=== PATIENT | female | born 1960 | race Caucasian/White ===

== ENCOUNTER → 2016-08-08 | Outpatient (CLI) | payer MEDICAID | END | disposition home or self-care (01) | LOC: LABWHC1 12:08 | PROVIDERS: ATTEND Internal Medicine | DX: E03.9 Hypothyroidism, unspecified (principal) | CPT/HCPCS: 36415; 84439; 84443; 84481 ==

== ENCOUNTER → 2016-09-27 | Outpatient (CLI) | payer MEDICAID ==
[2016-10-08 10:28] LABS: Mis test requested (Blood) IgE Antibody (IgG)
== END | disposition home or self-care (01) ==
LOC: LABWHC1 07:18
PROVIDERS: ATTEND Allergy & Immunology
DX: E06.3 Autoimmune thyroiditis (principal)
CPT/HCPCS: 36415; 83520; 84443; 86376; 86800

== ENCOUNTER → 2016-09-27 | Outpatient (CLI) | payer MEDICAID ==
--- NOTE | 2016-09-27 08:34 | US ---
EXAMINATION TYPE: US thyroid st tissue head/neck DATE OF EXAM: 09/27/2016 7:42 AM COMPARISON: NONE CLINICAL HISTORY: E06.3 HASHIMOTOS. GLAND SIZE: Right Lobe: 3.6 x 2.0 x 1.7 cm Overall Parenchyma: heterogenous Left Lobe: 3.3 x 1.3 x 1.4 cm Overall Parenchyma: heterogeneous Isthmus Thickness: 0.3 cm NODULES RIGHT: # of nodules measured on right: 0 LEFT: # of nodules measured on left: 0 ISTHMUS: # of nodules measured in the isthmus: 0 IMPRESSION: Bilateral neck scanned, no abnormal lymphadenopathy noted. Heterogeneous gland with inc reased vascularity, no distinct nodule visualized
== END | disposition home or self-care (01) ==
LOC: RADUSWWP 07:25
PROVIDERS: ATTEND Allergy & Immunology
DX: E06.3 Autoimmune thyroiditis (principal)
CPT/HCPCS: 36415; 76536; 84443; 86376; 86800

== ENCOUNTER → 2016-11-07 | Outpatient (CLI) | payer MEDICAID | END | disposition home or self-care (01) | LOC: LABWHC1 07:47 | PROVIDERS: ATTEND Allergy & Immunology | DX: E06.3 Autoimmune thyroiditis (principal) | CPT/HCPCS: 36415; 84436; 84439; 84443 ==

== ENCOUNTER → 2016-11-08 | Outpatient (CLI) | payer MEDICAID ==
--- NOTE | 2016-11-08 15:39 | XR ---
EXAMINATION TYPE: XR Hip LT and AP Pelvis DATE OF EXAM ORDERED: 11/08/2016 3:27 PM HISTORY: M25.552 L hip pain/Z96.642 Prescence of L artifica. COMPARISON: None. FINDINGS: There are bilateral hip prostheses in place. There is some heterotopic new bone on the lef t. There is a small amount of heterotopic topic bone on the right. No fracture or dislocation is seen . No obvious loosening of the prosthesis is seen. IMPRESSION: 1. NO ACUTE OSSEOUS LESION. 2. STATUS POST BILATERAL HIP PROSTHESES.
== END | disposition home or self-care (01) ==
LOC: RADXRMAIN 15:12
PROVIDERS: ATTEND Orthopaedic Surgery
DX: M25.552 Pain in left hip (principal); Z96.643 Presence of artificial hip joint, bilateral
CPT/HCPCS: 73502

== ENCOUNTER → 2016-11-14 | Outpatient (CLI) | payer MEDICAID ==
--- NOTE | 2016-11-14 13:56 | XR ---
Left knee HISTORY: Left knee pain 3 views of the left knee No comparisons Joint space loss and marginal spurring present especially in the medial compartment. Alignment and ellie ne mineralization are maintained. Some spurring present at the patellofemoral joint, lateral compartm ent. There may be a small joint effusion. IMPRESSION: Osteoarthritis.
== END ==
LOC: RADXRMAIN 08:35
PROVIDERS: ATTEND Orthopaedic Surgery
DX: M17.12 Unilateral primary osteoarthritis, left knee (principal); Z96.642 Presence of left artificial hip joint

== ENCOUNTER → 2016-12-20 | Outpatient (CLI) | payer MEDICAID ==
[2016-12-20 14:22] LABS: C Reactive Protein 40.4 mg/L (<10.0)
== END | disposition home or self-care (01) ==
LOC: LABWHC1 07:10
PROVIDERS: ATTEND Internal Medicine
DX: E03.9 Hypothyroidism, unspecified (principal)
CPT/HCPCS: 36415; 84439; 84443; 84481; 86140

== ENCOUNTER → 2016-12-31 | Outpatient (CLI) | payer MEDICAID | LOC: LABWHC1 14:13 | PROVIDERS: ATTEND Internal Medicine | DX: E03.9 Hypothyroidism, unspecified (principal) | CPT/HCPCS: 36415; 84436 ==

== ENCOUNTER → 2017-05-12 | Outpatient (CLI) | payer MEDICAID ==
--- NOTE | 2017-05-13 14:11 | MM ---
Reason for exam: screening (asymptomatic). Last mammogram was performed 1 year ago. History: Patient is postmenopausal. Family history of breast cancer in paternal aunt at age 60. Benign MG stereo VAD BX RT of the right breast, May 09, 2015. Took hormonal contraceptives for 9 years. Physical Findings: A clinical breast exam by your physician is recommended on an annual basis and results should be correlated with mammographic findings. MG 3D Screening Mammo W/Cad Bilateral CC and MLO view(s) were taken. Prior study comparison: May 10, 2016, bilateral MG 3d screening mammo w/cad. November 09, 2015, right breast MG diagnostic mammo RT w CAD. The breast tissue is heterogeneously dense. This may lower the sensitivity of mammography. Finding: There are typically benign calcifications in both breasts. Superficial lateral mass represents a skin mole. ASSESSMENT: Benign, BI-RAD 2 RECOMMENDATION: Routine screening mammogram of both breasts in 1 year.
== END ==
LOC: RADMAMWWP 15:25
PROVIDERS: ATTEND Obstetrics & Gynecology
DX: Z12.31 Encounter for screening mammogram for malignant neoplasm of breast (principal); Z80.3 Family history of malignant neoplasm of breast
CPT/HCPCS: 77063; G0202

== ENCOUNTER → 2017-05-13 | Outpatient (CLI) | payer MEDICAID ==
[2017-05-13 09:47] LABS: ALT 41 U/L (9-52); AST 26 U/L (14-36); Alkaline Phosphatase 112 U/L (38-126); Anion Gap 12 mmol/L; Blood Urea Nitrogen 17 mg/dL (7-17); Calcium 10.1 mg/dL (8.4-10.2); Carbon Dioxide 26 mmol/L (22-30); Chloride 101 mmol/L (98-107); Cholesterol 204 mg/dL (<200); Glucose 94 mg/dL (74-99); HDL Cholesterol 59 mg/dL (40-60); Non-African American GFR(MDRD) >60 (>60 ml/min/1.73 sqM); Potassium 5.5 mmol/L (3.5-5.1); Sodium 139 mmol/L (137-145); Total Bilirubin 0.3 mg/dL (0.2-1.3); Total Protein 7.1 g/dL (6.3-8.2)
[2017-05-13 10:02] LABS: CH 27.7; HCT 39.1 % (34.0-46.0); HDW 2.35; Hypochromasia Slight; MCH 27.5 pg (25.0-35.0); MCHC 30.6 g/dL (31.0-37.0); MCV 89.8 fL (80.0-100.0); Mean Platelet Volume 6.5; RBC 4.35 m/uL (3.80-5.40); RDW 12.9 % (11.5-15.5); WBC 7.7 k/uL (3.8-10.6)
== END | disposition home or self-care (01) ==
LOC: LABWHC1 08:41
PROVIDERS: ATTEND Internal Medicine
DX: Z00.00 Encounter for general adult medical examination without abnormal findings (principal); E78.5 Hyperlipidemia, unspecified; E03.9 Hypothyroidism, unspecified
CPT/HCPCS: 36415; 80053; 80061; 84439; 84443; 84481; 85027

== ENCOUNTER → 2017-08-13 | Outpatient (CLI) | payer MEDICAID ==
--- NOTE | 2017-08-13 11:41 | BD ---
EXAMINATION TYPE: MG DEXA axial skeleton. DATE OF EXAM: 08/13/2017 COMPARISON: NONE CLINICAL HISTORY: Osteoporosis screening . Postmenopausal female. Height: 5 FT 6 3/4 Weight: 188 FRAX RISK QUESTIONS: Alcohol (3 or more units per day): NO Family History (Parent hip fracture): NO Glucocorticoids (More than 3mos): NO (Ex: prednisone, prednisolone, methylprednisolone, dexamethasone, and hydrocortisone). History of Fracture in Adulthood: YES Secondary Osteoporosis: 1. Type 1 Diabetes: NO 2. Hyperthyroidism: NO 3. Menopause before 45: YES 4. Malnutrition: NO 5. Chronic liver disease: NO Rheumatoid Arthritis: NO Current Tobacco Use: NO RISK FACTORS HISTORY OF: Surgery to Spine/Hip(right/left)/Wrist (right/left): RADHA HIP REPLACED When: RT 2011 LT 2014 Active: YES Postmenopausal woman: AGE 41 Lost more than 2 inches in height since high school: YES MEDICATIONS: Thyroid Medications: YES Which medication: LEVOTHYROXINE How Lon YEARS Additional Medications: LEVOTHYROXINE,PREVACID Additional History: EXAM MEASUREMENTS: Bone mineral densitometry was performed using the [employer] System. Bone mineral density as measured about the Lumbar spine is: ----- L1-L4(G/cm2): 1.067 T Score Values are as follows: ----- L2: -2.0 ----- L3: -1.1 ----- L4: -0.2 ----- L1-L4: -0.9 Bone mineral density has: DECREASED -7.6 % since study of: 2011 IMPRESSION: Osteopenia (T Score between -2.5 and -1) as noted by T score values with regards to both hips. There is slightly increased risk of fracture and the patient may be considered for treatment. Re-Screen 2-5 years. NOTE: T-SCORE=SD OF THE YOUNG ADULT MEAN.
== END | disposition home or self-care (01) ==
LOC: RADBDWWP 09:00
PROVIDERS: ATTEND Obstetrics & Gynecology
DX: M85.852 Other specified disorders of bone density and structure, left thigh (principal); M85.851 Other specified disorders of bone density and structure, right thigh
CPT/HCPCS: 77080

== ENCOUNTER → 2017-08-15 | Outpatient (CLI) | payer MEDICAID ==
[2017-08-15 14:35] LABS: T4, Free (Free Thyroxine) 1.47 ng/dL (0.78-2.19)
== END | disposition home or self-care (01) ==
LOC: LABWHC1 13:47
PROVIDERS: ATTEND Internal Medicine
DX: E03.9 Hypothyroidism, unspecified (principal)
CPT/HCPCS: 36415; 84439; 84443; 84481

== ENCOUNTER → 2018-05-14 | Outpatient (CLI) | payer MEDICAID ==
--- NOTE | 2018-05-15 12:02 | MM ---
Reason for exam: screening (asymptomatic). Last mammogram was performed 1 year ago. History: Patient is postmenopausal. Family history of breast cancer in paternal aunt at age 60. Benign MG stereo VAD BX RT of the right breast, May 09, 2015. Took hormonal contraceptives for 9 years. Physical Findings: A clinical breast exam by your physician is recommended on an annual basis and results should be correlated with mammographic findings. MG 3D Screening Mammo W/Cad Bilateral CC and MLO view(s) were taken. XCCL view(s) were taken of the right breast. Prior study comparison: May 12, 2017, bilateral MG 3d screening mammo w/cad. May 10, 2016, bilateral MG 3d screening mammo w/cad. The breast tissue is heterogeneously dense. This may lower the sensitivity of mammography. There is no discrete abnormality. No significant changes when compared with prior studies. ASSESSMENT: Benign, BI-RAD 2 RECOMMENDATION: Routine screening mammogram of both breasts in 1 year.
== END | disposition home or self-care (01) ==
LOC: RADMAMWWP 12:24
PROVIDERS: ATTEND Obstetrics & Gynecology
DX: Z12.31 Encounter for screening mammogram for malignant neoplasm of breast (principal)
CPT/HCPCS: 77063; 77067

== ENCOUNTER → 2018-07-20 | Outpatient (CLI) | payer MEDICAID ==
[2018-07-20 15:38] LABS: Vitamin D 25 Hydroxy 31.8 ng/mL (30.0-100.0)
[2018-07-20 16:05] LABS: Thyroid Peroxidase Antibodies 2805.6 U/mL (0.0-60.0)
== END ==
LOC: LABWHC1 11:30
PROVIDERS: ATTEND Obstetrics & Gynecology
DX: N95.1 Menopausal and female climacteric states (principal); G47.00 Insomnia, unspecified; R53.83 Other fatigue; R61 Generalized hyperhidrosis
CPT/HCPCS: 36415; 82306; 82607; 82670; 83001; 84403; 84436; 84443; 84481; 86376

== ENCOUNTER → 2018-10-02 | Outpatient (CLI) | payer MEDICAID | END | disposition home or self-care (01) | LOC: LABWHC1 07:24 | PROVIDERS: ATTEND Obstetrics & Gynecology | DX: N95.1 Menopausal and female climacteric states (principal); R61 Generalized hyperhidrosis; R53.83 Other fatigue | CPT/HCPCS: 36415; 82670; 83001; 84403 ==

== ENCOUNTER → 2019-05-05 | Outpatient (CLI) | payer MEDICAID ==
[2019-05-05 07:40] LABS: Basophils % (A) 1 %; Eosinophils # (A) 0.3 k/uL (0-0.7); Eosinophils % (A) 4 %; HCT 39.8 % (34.0-46.0); HGB 12.5 gm/dL (11.4-16.0); Lymphocytes # (A) 1.2 k/uL (1.0-4.8); Lymphocytes % (A) 20 %; MCH 30.4 pg (25.0-35.0); MCHC 31.4 g/dL (31.0-37.0); MCV 96.8 fL (80.0-100.0); Mean Platelet Volume 6.9; Monocytes # (A) 0.4 k/uL (0-1.0); Monocytes % (A) 6 %; Neutrophils # (A) 4.1 k/uL (1.3-7.7); Neutrophils % (A) 68 %; Platelet Count 329 k/uL (150-450); RBC 4.11 m/uL (3.80-5.40); RDW 13.2 % (11.5-15.5)
[2019-05-05 11:41] LABS: African American GFR (CKD) 109.1 (60.0-200.0); Albumin 4.3 g/dL (3.80-4.90); Albumin/Globulin Ratio 2.39 (1.60-3.17); BUN/Creat Ratio 12.86 Ratio (12.00-20.00); Calcium 9.8 mg/dL (8.7-10.3); Chol/HDL Ratio 3.16; Globulin 1.8 g/dL (1.6-3.3); LDL Cholesterol,Calculated 119.2 mg/dL (0.0-131.0); Potassium 4.1 mmol/L (3.5-5.5); Total Bilirubin 0.7 mg/dL (0.2-1.2); Total Protein 6.1 g/dL (6.2-8.2); VLDL Calculation 14.8 mg/dL (5.00-40.00)
[2019-05-05 11:48] LABS: T4, Free (Free Thyroxine) 1.4 ng/dL (0.80-1.80)
[2019-05-05 14:30] LABS: Hemoglobin A1C 4.6 % (4.0-6.0)
== END | disposition home or self-care (01) ==
LOC: LABWHC1 06:53
PROVIDERS: ATTEND Internal Medicine
DX: E78.2 Mixed hyperlipidemia (principal); K21.0 Gastro-esophageal reflux disease with esophagitis; E03.9 Hypothyroidism, unspecified
CPT/HCPCS: 36415; 80053; 80061; 83036; 84439; 84443; 85025

== ENCOUNTER → 2019-05-19 | Outpatient (CLI) | payer MEDICAID ==
--- NOTE | 2019-05-20 09:14 | MM ---
Reason for exam: screening (asymptomatic). Last mammogram was performed 1 year ago. History: Patient is postmenopausal. Family history of breast cancer in paternal aunt at age 60. Benign MG stereo VAD BX RT of the right breast, May 09, 2015. Took hormonal contraceptives for 9 years. Taking progesterone for 1 year. Taking other hormone for 1 year. Physical Findings: A clinical breast exam by your physician is recommended on an annual basis and results should be correlated with mammographic findings. MG 3D Screening Mammo W/Cad Bilateral CC and MLO view(s) were taken. Prior study comparison: May 14, 2018, bilateral MG 3d screening mammo w/cad. May 12, 2017, bilateral MG 3d screening mammo w/cad. The breast tissue is heterogeneously dense. This may lower the sensitivity of mammography. Focal asymmetry upper outer left breast. This finding is changed when compared with previous exams. ASSESSMENT: Incomplete: need additional imaging evaluation, BI-RAD 0 RECOMMENDATION: Special view mammogram of the left breast. If lesion persists on supplemental views, image directed ultrasound is recommended. [facility] will attempt to contact patient to return for supplemental views and ultrasound if indicated.
== END | disposition home or self-care (01) ==
LOC: RADMAMWWP 07:44
PROVIDERS: ATTEND Obstetrics & Gynecology
DX: Z12.31 Encounter for screening mammogram for malignant neoplasm of breast (principal)
CPT/HCPCS: 77063; 77067

== ENCOUNTER → 2019-05-20 | Outpatient (CLI) | payer MEDICAID ==
--- NOTE | 2019-05-20 11:20 | MM ---
Reason for exam: additional evaluation requested from abnormal screening. Last mammogram was performed less than 1 month ago. History: Patient is postmenopausal. Family history of breast cancer in paternal aunt at age 60. Benign MG stereo VAD BX RT of the right breast, May 09, 2015. Took hormonal contraceptives for 9 years. Taking estrogen. Taking progesterone for 1 year. Taking other hormone for 1 year. Physical Findings: Nurse did not find any significant physical abnormalities on exam. MG 3D Work Up W/Cad LT Spot compression CC, spot compression MLO, and ML view(s) were taken of the left breast. Prior study comparison: May 19, 2019, bilateral MG 3d screening mammo w/cad. May 14, 2018, bilateral MG 3d screening mammo w/cad. Nodularity persists upper outer quadrant left breast. Ultrasound recommended. These results were verbally communicated with the patient and result sheet given to the patient on 05/20/19. ASSESSMENT: Incomplete: need additional imaging evaluation, BI-RAD 0 RECOMMENDATION: Ultrasound of the left breast.
--- NOTE | 2019-05-20 11:21 | USB ---
Reason for exam: additional evaluation requested from abnormal screening. History: Patient is postmenopausal. Family history of breast cancer in paternal aunt at age 60. Benign MG stereo VAD BX RT of the right breast, May 09, 2015. Took hormonal contraceptives for 9 years. Taking estrogen. Taking progesterone for 1 year. Taking other hormone for 1 year. US Breast Workup Limited LT Left limited breast ultrasound including focal area of concern, retroareolar and axilla demonstrates a 0.7 x 0.4 x 0.5cm oval, cystic lesion at 3 o'clock. These results were verbally communicated with the patient and result sheet given to the patient on 05/20/19. ASSESSMENT: Benign, BI-RAD 2 RECOMMENDATION: Return to routine screening mammogram schedule for both breasts.
== END | disposition home or self-care (01) ==
LOC: RADMAMWWP 10:14
PROVIDERS: ATTEND Obstetrics & Gynecology
DX: R92.8 Other abnormal and inconclusive findings on diagnostic imaging of breast (principal)
CPT/HCPCS: 77061; 77065

== ENCOUNTER 2019-05-28 08:03 | Day surgery (SDC) | payer MEDICAID ==
[2019-05-26 15:46] VITALS: BMI 26.6
[~2019-05-28 08:03] MED LIST: LACTATED RINGERS 1,000 ML IV SCH
[2019-05-28 08:32] VITALS: RESP 18; TEMP 98.9
[2019-05-28] MEDS ORDERED: LIDOCAINE 1% 20 ML VIAL (10MG/ML) FOR IV START INTRADERMA ONE (08:33)
[2019-05-28] MEDS ORDERED: PROPOFOL 10 MG/ML 20 ML VIAL IV ONE (09:06)
[2019-05-28] MEDS ORDERED: fentaNYL (PF) 50 MCG/ML 2 ML AMP ONE (09:06)
[2019-05-28] MEDS ORDERED: MIDAZOLAM 2 MG/2 ML VIAL ONE (09:06)
--- NOTE | 2019-05-28 09:27 | P.PCN ---
Date of Procedure: 05/28/19 Procedure(s) Performed: BRIEF HISTORY: Patient is a 58-year-old pleasant white female scheduled for an elective colonoscopy as a part of screening for colorectal neoplasia. PROCEDURE PERFORMED: Colonoscopy. PREOPERATIVE DIAGNOSIS: Screening for colon cancer. IV sedation per Anesthesia. PROCEDURE: After informed consent was obtained, the patient, was brought into the endoscopy unit. IV sedation was administered by Anesthesia under continuous monitoring. Digital rectal examination was normal. Initially the Olympus CF-160 flexible video colonoscope was then inserted in the rectum, gradually advanced into the cecum without any difficulty. Careful examination was performed as the scope was gradually being withdrawn. Ileocecal valve and the appendiceal orifice were visualized and appeared normal. Prep was excellent. Mucosa of the cecum, ascending colon, transverse colon, descending colon, sigmoid colon, and rectum appeared normal. Retroflexion was performed in the rectum and no lesions were seen. The patient tolerated the procedure well. IMPRESSION: Normal-appearing colon from rectum to cecum with no evidence of colorectal neoplasia . RECOMMENDATIONS: Findings of this examination were discussed with the patient as well as her family. She was advised to have a repeat screening colonoscopy in 10 years.
[2019-05-28 09:49] VITALS: BP 135/76; PULSE 60
== END 2019-05-28 10:05 | disposition home or self-care (01) ==
LOC: ORWHC2ENDO 08:03
PROVIDERS: ATTEND Internal Medicine Gastroenterology
DX: Z12.11 Encounter for screening for malignant neoplasm of colon (principal); Z87.891 Personal history of nicotine dependence; E07.9 Disorder of thyroid, unspecified; K21.9 Gastro-esophageal reflux disease without esophagitis; Z79.890 Hormone replacement therapy; Z88.5 Allergy status to narcotic agent; Z79.899 Other long term (current) drug therapy
CPT/HCPCS: J2250; J3010; J2704; G0121

== ENCOUNTER → 2019-07-02 | Outpatient (CLI) | payer MEDICAID ==
[2019-07-02 17:13] LABS: T4, Free (Free Thyroxine) 1.2 ng/dL (0.80-1.80)
== END | disposition home or self-care (01) ==
LOC: LABWHC1 11:02
PROVIDERS: ATTEND Internal Medicine
DX: E03.9 Hypothyroidism, unspecified (principal)
CPT/HCPCS: 36415; 84439; 84443

== ENCOUNTER → 2019-08-24 | Outpatient (CLI) | payer MEDICAID ==
--- NOTE | 2019-08-24 14:03 | BD ---
EXAMINATION TYPE: Axial Bone Density DATE OF EXAM: 08/24/2019 COMPARISON: 2018 CLINICAL HISTORY: M 89.9 Height: 66 & 3/4 inches Weight: 165 FRAX RISK QUESTIONS: Alcohol (3 or more units per day): no Family History (Parent hip fracture): no Glucocorticoids (More than 3mos): no (Ex: prednisone, prednisolone, methylprednisolone, dexamethasone, and hydrocortisone). History of Fracture in Adulthood: yes Secondary Osteoporosis: 1. Type 1 Diabetes: no 2. Hyperthyroidism: no 3. Menopause before 45: unsure 4. Malnutrition: no 5. Chronic liver disease: no Rheumatoid Arthritis: no Current Tobacco Use: no RISK FACTORS HISTORY Surgery to Hip right/left): yes, bilateral hip replacement When: Right 2011, Left 2014 Family History of Osteoporosis: no Active: yes Diet low in dairy products/other sources of calcium: no Postmenopausal woman: yes Take estrogen and/or progesterone medications: yes How long: progesterone pellets since 2017; hormonal contraceptives about 9 years but not now Lost more than 2 inches in height since high school: unsure; states was 5ft - 8 & 3/4 inches at one t zackary but has had bilateral hip replacements Frequent falls: no Poor Health: no Hyperparathyroidism: no Adrenal Insufficiency: no MEDICATIONS: Prednisone or other steroids: no Thyroid Medications: yes Which medication: Levothyroxine How Long: over 15 years Osteoporosis Medications: no Additional Medications: generic Prevacid Additional History: Hashimotos EXAM MEASUREMENTS: Bone mineral densitometry was performed using the [employer] System. Bone mineral density as measured about the Lumbar spine is: ----- L1-L4(G/cm2): 1.072 T Score Values are as follows: ----- L2: -1.9 ----- L3: -1.2 ----- L4: 0.3 ----- L1-L4: -0.9 Bone mineral density has: Increased 2.1% since study of: 08/13/2017 Bone mineral density about the L Wrist (g/cm2): 0.588 T Score values are as follows: -----Dist. R+U: -1.6 -----Prox. R+U: -1.5 -----Radius total: -1.4 Bone mineral density BASELINE for forearm IMPRESSION: Osteopenia (T Score between -2.5 and 1). There is slightly increased risk of fracture and patient may be considered for treatment. Re-Screen 2-5 years. NOTE: T-SCORE=SD OF THE YOUNG ADULT MEAN.
== END | disposition home or self-care (01) ==
LOC: RADBDWWP 07:39
PROVIDERS: ATTEND Obstetrics & Gynecology
DX: M85.80 Other specified disorders of bone density and structure, unspecified site (principal)
CPT/HCPCS: 77080

== ENCOUNTER → 2019-09-16 | Outpatient (CLI) | payer MEDICAID ==
[2019-09-16 11:45] LABS: Estradiol 71.5 pg/mL
== END | disposition home or self-care (01) ==
LOC: LABWHC1 07:40
PROVIDERS: ATTEND Obstetrics & Gynecology
DX: R53.83 Other fatigue (principal); E34.50 Androgen insensitivity syndrome, unspecified; N95.1 Menopausal and female climacteric states; R37 Sexual dysfunction, unspecified
CPT/HCPCS: 36415; 82670; 83001; 84144; 84403

== ENCOUNTER → 2020-03-08 | Outpatient (CLI) | payer MEDICAID ==
--- NOTE | 2020-03-08 09:26 | XR ---
EXAMINATION TYPE: XR knee complete LT DATE OF EXAM: 03/08/2020 CLINICAL HISTORY: Pain in left knee. Swelling. TECHNIQUE: AP, oblique, lateral and sunrise views of the left knee are obtained. COMPARISON: 11/14/2016 left knee radiograph FINDINGS: There is no acute fracture/dislocation evident in left knee. Tricompartmental degenerative spurring. There is normal alignment of the patella and sunrise view without evidence of significant subluxation. Small suprapatellar joint effusion. Normal osseous mineralization. IMPRESSION: 1. No acute fracture or dislocation of the knee. 2. Tricompartmental osteoarthritic changes mildly increased versus 2017 comparison. 3. Small suprapatellar joint effusion.
== END | disposition home or self-care (01) ==
LOC: RADXRMAIN 07:32
PROVIDERS: ATTEND Orthopaedic Surgery Sports Medicine
DX: M25.462 Effusion, left knee (principal)

== ENCOUNTER → 2020-05-29 | Outpatient (CLI) | payer MEDICAID ==
--- NOTE | 2020-05-31 10:54 | MM ---
Reason for exam: screening (asymptomatic). Last mammogram was performed 1 year ago. History: Patient is postmenopausal. Family history of breast cancer in paternal aunt at age 60. Benign MG stereo VAD BX RT of the right breast, May 09, 2015. Took hormonal contraceptives for 9 years. Taking estrogen. Taking progesterone for 1 year. Taking other hormone for 1 year. Physical Findings: A clinical breast exam by your physician is recommended on an annual basis and results should be correlated with mammographic findings. MG 3D Screening Mammo W/Cad Bilateral CC and MLO view(s) were taken. Prior study comparison: May 20, 2019, left breast MG 3d work up w/cad LT. May 19, 2019, bilateral MG 3d screening mammo w/cad. The breast tissue is heterogeneously dense. This may lower the sensitivity of mammography. Bilateral calcifications. No significant changes when compared with prior studies. ASSESSMENT: Benign, BI-RAD 2 RECOMMENDATION: Routine screening mammogram of both breasts in 1 year.
== END | disposition home or self-care (01) ==
LOC: RADMAMWWP 07:33
PROVIDERS: ATTEND Obstetrics & Gynecology
DX: Z12.31 Encounter for screening mammogram for malignant neoplasm of breast (principal)
CPT/HCPCS: 77063; 77067

== ENCOUNTER → 2020-07-07 | Outpatient (CLI) | payer MEDICAID | END | disposition home or self-care (01) | LOC: LABWHC1 13:05 | PROVIDERS: ATTEND Internal Medicine | DX: Z00.00 Encounter for general adult medical examination without abnormal findings (principal) | CPT/HCPCS: 36415; 84443 ==

== ENCOUNTER → 2020-07-31 | Outpatient (CLI) | payer MEDICAID ==
[2020-07-31 07:40] LABS: Basophils # (A) 0.1 k/uL (0-0.2); Basophils % (A) 1 %; Eosinophils # (A) 0.3 k/uL (0-0.7); Eosinophils % (A) 4 %; HCT 39.6 % (34.0-46.0); HGB 13.1 gm/dL (11.4-16.0); Lymphocytes # (A) 1.7 k/uL (1.0-4.8); Lymphocytes % (A) 27 %; MCH 30.6 pg (25.0-35.0); MCHC 33.2 g/dL (31.0-37.0); MCV 92.2 fL (80.0-100.0); Mean Platelet Volume 6.6; Monocytes # (A) 0.4 k/uL (0-1.0); Monocytes % (A) 6 %; Neutrophils # (A) 3.9 k/uL (1.3-7.7); Neutrophils % (A) 61 %; Platelet Count 354 k/uL (150-450); RBC 4.29 m/uL (3.80-5.40); RDW 12.6 % (11.5-15.5); WBC 6.4 k/uL (3.8-10.6)
[2020-07-31 10:28] LABS: African American GFR (CKD) 113.2 (60.0-200.0); Albumin 4.2 g/dL (3.80-4.90); Albumin/Globulin Ratio 2.1 (1.60-3.17); Anion Gap 3.9 mmol/L (4.00-12.00); BUN/Creat Ratio 21.67 Ratio (12.00-20.00); Calcium 9.5 mg/dL (8.7-10.3); Carbon Dioxide 29.1 mmol/L (21.6-31.8); Chol/HDL Ratio 3.49; LDL Cholesterol,Calculated 155.2 mg/dL (0.0-131.0); Non-African American GFR(CKD) 97.7 (60.0-200.0); Potassium 4.9 mmol/L (3.5-5.5); Total Bilirubin 0.5 mg/dL (0.2-1.2); Total Protein 6.2 g/dL (6.2-8.2); VLDL Calculation 13.8 mg/dL (5.00-40.00)
== END | disposition home or self-care (01) ==
LOC: LABWHC1 06:53
PROVIDERS: ATTEND Internal Medicine
DX: Z00.00 Encounter for general adult medical examination without abnormal findings (principal)
CPT/HCPCS: 36415; 80053; 80061; 85025

== ENCOUNTER → 2020-08-23 | Outpatient (CLI) | payer MEDICAID ==
[2020-08-23 11:26] LABS: Estradiol 52.7 pg/mL; Follicle Stimulating Hormone 58.4 mIU/mL
== END | disposition home or self-care (01) ==
LOC: LABWHC1 06:53
PROVIDERS: ATTEND Obstetrics & Gynecology
DX: N95.1 Menopausal and female climacteric states (principal); E34.50 Androgen insensitivity syndrome, unspecified; R53.83 Other fatigue
CPT/HCPCS: 36415; 82670; 83001; 84144

== ENCOUNTER → 2020-11-03 | Outpatient (CLI) | payer MEDICAID ==
[2020-11-03 16:52] LABS: African American GFR (CKD) 107.6 (60.0-200.0); Albumin 4.4 g/dL (3.80-4.90); Anion Gap 8.1 mmol/L (4.00-12.00); BUN/Creat Ratio 18.57 Ratio (12.00-20.00); Calcium 10.2 mg/dL (8.7-10.3); Carbon Dioxide 25.9 mmol/L (21.6-31.8); Chol/HDL Ratio 2.61; Globulin 2.2 g/dL (1.6-3.3); LDL Cholesterol,Calculated 81.6 mg/dL (0.0-131.0); Non-African American GFR(CKD) 92.9 (60.0-200.0); Potassium 5.2 mmol/L (3.5-5.5); Total Bilirubin 0.6 mg/dL (0.2-1.2); Total Protein 6.6 g/dL (6.2-8.2); VLDL Calculation 13.4 mg/dL (5.00-40.00)
[2020-11-03 16:59] LABS: T4, Free (Free Thyroxine) 1.4 ng/dL (0.80-1.80)
== END | disposition home or self-care (01) ==
LOC: LABWHC1 06:56
PROVIDERS: ATTEND Internal Medicine
DX: E78.2 Mixed hyperlipidemia (principal); E03.9 Hypothyroidism, unspecified
CPT/HCPCS: 36415; 80053; 80061; 84439; 84443

== ENCOUNTER → 2020-12-13 | Day surgery (SDC) | payer MEDICAID ==
[2020-12-06 14:39] VITALS: BMI 25.0
[~2020-12-13] MED LIST changes: +LIDOCAINE 1% INJ 10MG/ML (20 ML MDV) ONE; +PROPOFOL 10 MG/ML 20 ML VIAL IV ONE
[2020-12-13 09:18] VITALS: RESP 16; TEMP 97.4
--- NOTE | 2020-12-13 10:00 | P.PCN ---
Date of Procedure: 12/13/20 Procedure(s) Performed: BRIEF HISTORY: Patient is a 60-year-old, pleasant, white female scheduled for an upper endoscopy as a part of evaluation of long-standing history of GERD and has been on Prevacid 30 mg daily. Lately has been having intermittent dysphagia to solids and pills.. PROCEDURE PERFORMED: Esophagogastroduodenoscopy with dilation PREOPERATIVE DIAGNOSIS: GERD/intermittent dysphagia to solids. IV sedation per anesthesia. PROCEDURE: After informed consent was obtained, the patient was brought into the endoscopy unit. IV sedation was administered by Anesthesia under continuous monitoring. Initially the Olympus GIF-140 video endoscope was inserted into the mouth. Esophagus intubated without any difficulty. It was gradually advanced into the stomach and duodenum and carefully examined. The bulb and the second part of the duodenum appeared normal. The scope at this time was withdrawn to the stomach, adequately insufflated with air, and upon careful examination, mucosa of the antrum, body, cardia and the fundus appeared normal. The scope was then withdrawn into the esophagus. Small sliding type hiatal hernia noted. The GE junction was located at 39 cm from the incisors. There was a distal esophageal Schatzki's ring noted which was patent and was dilated using 15-18 mm TTS balloon in a sequential fashion for 90 seconds. The rest of the esophagus appeared normal. There were no erosions or ulcerations seen and the patient tolerated the procedure well. IMPRESSION: 1. Dstal esophageal Schatzki's ring status post balloon dilation using 15-18 mm TTS balloon as described. 2. Small hiatal hernia. RECOMMENDATIONS: The findings of this examination were discussed with the patient is a family.. She was advised to be on a clear liquid diet for lunch. Continue with Prevacid 30 mg daily and follow antireflux measures.
[2020-12-13 10:22] VITALS: BP 119/74; PULSE 53
== END ==
LOC: ORWHC2ENDO 08:40
PROVIDERS: ATTEND Internal Medicine Gastroenterology
DX: K22.2 Esophageal obstruction (principal); E07.9 Disorder of thyroid, unspecified; K21.9 Gastro-esophageal reflux disease without esophagitis; Z79.899 Other long term (current) drug therapy
CPT/HCPCS: 43249; J2001; J2704; C1726

== ENCOUNTER → 2021-02-01 | Outpatient (CLI) | payer MEDICAID | END | disposition home or self-care (01) | DX: N95.0 Postmenopausal bleeding (principal) ==

== ENCOUNTER → 2021-04-17 | Outpatient (CLI) | payer MEDICAID ==
[2021-04-17 11:50] LABS: Basophils # (A) 0.08 X 10*3/uL (0.00-0.10); Basophils % (A) 1.1 %; Eosinophils # (A) 0.19 X 10*3/uL (0.04-0.35); Eosinophils % (A) 2.7 %; HCT 40.6 % (37.2-46.3); Lymphocytes # (A) 1.96 X 10*3/uL (0.90-5.00); MCH 29.6 pg (27.0-32.0); MCV 92.5 fL (80.0-97.0); Mean Platelet Volume 9.9 fL (9.5-12.2); Monocytes # (A) 0.47 X 10*3/uL (0.20-1.00); Monocytes % (A) 6.7 %; Neutrophils # (A) 4.29 X 10*3/uL (1.80-7.70); Neutrophils % (A) 61.2 %; Platelet Count 368 X 10*3/uL (140-440); RBC 4.39 X 10*6/uL (4.10-5.20); RDW 11.9 % (11.5-14.5); WBC 7.01 X 10*3/uL (4.50-10.00)
[2021-04-17 18:11] LABS: African American GFR (CKD) 107.6 (60.0-200.0); Albumin 4.4 g/dL (3.80-4.90); Anion Gap 9.3 mmol/L (4.00-12.00); BUN/Creat Ratio 28.57 Ratio (12.00-20.00); Calcium 9.8 mg/dL (8.7-10.3); Carbon Dioxide 23.7 mmol/L (21.6-31.8); Chol/HDL Ratio 2.53; Globulin 2.2 g/dL (1.6-3.3); Non-African American GFR(CKD) 92.9 (60.0-200.0); Potassium 4.9 mmol/L (3.5-5.5); Total Bilirubin 0.6 mg/dL (0.2-1.2); Total Protein 6.6 g/dL (6.2-8.2)
[2021-04-17 18:20] LABS: T4, Free (Free Thyroxine) 1.4 ng/dL (0.80-1.80)
== END | disposition home or self-care (01) ==
LOC: LABWHC1 06:48
PROVIDERS: ATTEND Internal Medicine
DX: E03.9 Hypothyroidism, unspecified (principal); E78.2 Mixed hyperlipidemia; K21.00 Gastro-esophageal reflux disease with esophagitis, without bleeding
CPT/HCPCS: 36415; 80053; 80061; 84439; 84443; 85025

== ENCOUNTER → 2021-05-30 | Outpatient (CLI) | payer MEDICAID | END | disposition home or self-care (01) | LOC: LABWHC1 15:41 | PROVIDERS: ATTEND Emergency Medicine | DX: U07.1 COVID-19 (principal) | CPT/HCPCS: 87635 ==

== ENCOUNTER → 2021-07-06 | Outpatient (CLI) | payer MEDICAID ==
--- NOTE | 2021-07-09 15:02 | MM ---
Reason for exam: screening (asymptomatic). Last mammogram was performed 1 year and 1 month ago. History: Patient is postmenopausal. Family history of breast cancer in paternal aunt at age 60. Benign MG stereo VAD BX RT of the right breast, May 09, 2015. Took hormonal contraceptives for 9 years. Taking estrogen. Taking progesterone for 1 year. Taking other hormone for 1 year. Physical Findings: A clinical breast exam by your physician is recommended on an annual basis and results should be correlated with mammographic findings. MG 3D Screening Mammo W/Cad Bilateral CC and MLO view(s) were taken. Prior study comparison: May 29, 2020, bilateral MG 3d screening mammo w/cad. May 20, 2019, left breast MG 3d work up w/cad LT. May 19, 2019, bilateral MG 3d screening mammo w/cad. May 14, 2018, bilateral MG 3d screening mammo w/cad. The breast tissue is heterogeneously dense. This may lower the sensitivity of mammography. Finding: There are stable heterogeneous, grouped/clustered calcifications in the middle position of the left breast. Closer evaluation recommended. New finding since May 29, 2020, May 20, 2019, May 19, 2019, and May 14, 2018. ASSESSMENT: Incomplete: need additional imaging evaluation, BI-RAD 0 RECOMMENDATION: Special view mammogram of the left breast. [facility] will attempt to contact patient to return for supplemental views.
== END | disposition home or self-care (01) ==
LOC: RADMAMWWP 06:52
PROVIDERS: ATTEND Obstetrics & Gynecology
DX: Z12.31 Encounter for screening mammogram for malignant neoplasm of breast (principal); Z80.3 Family history of malignant neoplasm of breast; Z78.0 Asymptomatic menopausal state
CPT/HCPCS: 77063; 77067

== ENCOUNTER → 2021-07-18 | Outpatient (CLI) | payer MEDICAID ==
--- NOTE | 2021-07-18 10:15 | MM ---
Reason for exam: additional evaluation requested from abnormal screening. Last mammogram was performed less than 1 month ago. History: Patient is postmenopausal. Family history of breast cancer in paternal aunt at age 60. Benign MG stereo VAD BX RT of the right breast, May 09, 2015. Took hormonal contraceptives for 9 years. Taking estrogen for 3 years. Taking progesterone for 3 years. Taking other hormone for 3 years. Physical Findings: Nurse did not find any significant physical abnormalities on exam. MG 3D Work Up W/Cad LT CC with magnification, LM with magnification, and ML view(s) were taken of the left breast. Prior study comparison: July 06, 2021, bilateral MG 3d screening mammo w/cad. May 29, 2020, bilateral MG 3d screening mammo w/cad. The breast tissue is heterogeneously dense. This may lower the sensitivity of mammography. Central 12 o'clock grouped calcifications appear more numerous but appear to be compromised of both milk of calcium and round and puctate calcifications. 6 month follow up recommended given increase. These results were verbally communicated with the patient and result sheet given to the patient on 07/18/21. ASSESSMENT: Probably benign, BI-RAD 3 RECOMMENDATION: Follow-up diagnostic mammogram of the left breast in 6 months.
== END | disposition home or self-care (01) ==
LOC: RADMAMWWP 06:57
PROVIDERS: ATTEND Obstetrics & Gynecology
DX: R92.1 Mammographic calcification found on diagnostic imaging of breast (principal); Z80.3 Family history of malignant neoplasm of breast; Z78.0 Asymptomatic menopausal state
CPT/HCPCS: 77061; 77065

== ENCOUNTER → 2021-11-27 | Outpatient (CLI) | payer MEDICAID ==
--- NOTE | 2021-11-27 15:40 | CT ---
EXAMINATION TYPE: CT heart w calcium score DATE OF EXAM: 11/27/2021 COMPARISON: HISTORY: Screening for cardiovascular disorder. 213.9 CT DLP: 67.20 mGycm Automated exposure control for dose reduction was used. CT CALCIUM SCORING Coronary calcium is a marker for plaque (fatty deposits) in a blood vessel or atherosclerosis (harden ing of the arteries). The presence and amount of calcium detected in a coronary artery by the CT sca n, indicates the presence and amount of atherosclerotic plaque. These calcium deposits appear years before the development of heart disease symptoms such as chest pain and shortness of breath. A calcium score is computed for each of the coronary arteries based upon the volume and density of th e calcium deposits. This can be referred to as your calcified plaque burden. It does not correspond directly to the percentage of narrowing in the artery but does correlate with the severity of the un derlying coronary atherosclerosis. PROCEDURE TECHNIQUE - Prospective Gating was used. Slice thickness: 3mm. Density threshold (HU): 130, Pixel threshold: 3, Algorithm: discrete. RESULTS Region: LM Calcium Score (Agatston): 14.67 Volume (mm3): 22 Mass (g): 7.33 Region: RCA Calcium Score (Agatston): 0 Volume (mm3): 0 Mass (g): 0 Region: LAD Calcium Score (Agatston): 0 Volume (mm3): 0 Mass (g): 0 Region: CX Calcium Score (Agatston): 0 Volume (mm3): 0 Mass (g): 0 Region: PDA Calcium Score (Agatston): 0 Volume (mm3): 0 Mass (g): 0 Total: Calcium Score (Agatston): 14.67 Volume (mm3): 22 Mass (g): 7.33 TOTAL CALCIUM SCORE: 14.67 IMPRESSION: 1. There are multiple pulmonary nodules seen with the largest measuring 6 mm. This is noted in the le ft upper lobe. Additional sub-5 mm nodules are seen which are nonspecific and too small to characteri ze but likely benign. Recommend a follow-up CT of the chest. Calcium Score: 14.67 Implication: Definite, at least mild atherosclerotic plaque Risk of Coronary Artery Disease: Mild to minimal CALCIUM SCORE IMPLICATION RISK OF C ORONARY ARTERY DISEASE 0 No identifiable plaque Very low, generally less than 5% 1-10 Minimal identifiable plaque Very unlikely, less than 10% 11-100 Definite, at least mild atherosclerotic plaque Mild or m inimal coronary narrowings likely 101-400 Definite, at least moderate atherosclerotic plaque Mild coronary ar hailey disease highly likely, significant narrowing possible 401 or Higher Extensive atherosclerotic plaque High lik elihood of at least one significant coronary narrowing
== END | disposition home or self-care (01) ==
LOC: RADCTMAIN 14:57
PROVIDERS: ATTEND Internal Medicine
DX: Z13.6 Encounter for screening for cardiovascular disorders (principal); R91.8 Other nonspecific abnormal finding of lung field
CPT/HCPCS: 75571

== ENCOUNTER → 2021-11-28 | Outpatient (CLI) | payer MEDICAID ==
--- NOTE | 2021-11-28 16:49 | CT ---
EXAMINATION TYPE: CT chest wo con DATE OF EXAM: 11/28/2021 COMPARISON: None HISTORY: h/o lung nodule seen on prior calcium scoring CT CT DLP: [address] of the chest was performed with lung and mediastinal window settings submitted. The la ck of contrast limits evaluation of the vascular, mediastinal and parenchymal structures including th e upper abdomen. LUNGS: 5 mm left upper lobe pulmonary nodule. Pleural-based left upper lobe pleural nodule measuring 4 mm. 2 mm pulmonary nodule right minor fissure. 3 mm pulmonary nodule left lower lobe. No pulmonary mass. No pleural effusion or consolidation. MEDIASTINUM/VIVIENNE: Thoracic aorta is of normal caliber with limited evaluation given lack of contrast . The heart is not enlarged. No evidence for mediastinal mass. No lymph nodes greater than 1cm. UPPER ABDOMEN: No significant abnormality is seen. OTHER: No significant other abnormality. IMPRESSION: 1. Nonspecific subcentimeter pulmonary nodularity is probably benign. Follow-up in one year is advis ed.
== END | disposition home or self-care (01) ==
LOC: RADCTMAIN 16:11
PROVIDERS: ATTEND Internal Medicine
DX: R91.8 Other nonspecific abnormal finding of lung field (principal)
CPT/HCPCS: 71250

== ENCOUNTER → 2021-12-01 | Outpatient (CLI) | payer MEDICAID ==
[2021-12-01 16:18] LABS: Basophils # (A) 0.04 X 10*3/uL (0.00-0.10); Basophils % (A) 0.6 %; Eosinophils # (A) 0.16 X 10*3/uL (0.04-0.35); Eosinophils % (A) 2.5 %; HCT 39.8 % (37.2-46.3); HGB 12.7 g/dL (12.0-15.0); Immature Grans, Automated 0.3 %; Lymphocytes # (A) 1.54 X 10*3/uL (0.90-5.00); Lymphocytes % (A) 24.3 %; MCH 29.9 pg (27.0-32.0); MCHC 31.9 g/dL (32.0-37.0); MCV 93.6 fL (80.0-97.0); Mean Platelet Volume 10.1 fL (9.5-12.2); Monocytes # (A) 0.44 X 10*3/uL (0.20-1.00); Monocytes % (A) 6.9 %; NRBC Per 100 WBC 0 /100 WBCS (0.0-0.0); Neutrophils # (A) 4.14 X 10*3/uL (1.80-7.70); Neutrophils % (A) 65.4 %; Platelet Count 369 X 10*3/uL (140-440); RBC 4.25 X 10*6/uL (4.10-5.20); RDW 12.2 % (11.5-14.5); WBC 6.34 X 10*3/uL (4.50-10.00)
[2021-12-01 16:26] LABS: Carcinoembryonic Antigen 1.4 ng/mL (0.0-4.9); Progesterone 10.7 ng/mL
[2021-12-01 16:27] LABS: Albumin 4.4 g/dL (3.8-4.9); Albumin/Globulin Ratio 2.17 (1.60-3.17); Anion Gap 8.4 mmol/L (10.00-18.00); BUN/Creat Ratio 14.75 Ratio (12.00-20.00); Carbon Dioxide 25.2 mmol/L (20.0-27.5); Estradiol 24.5 pg/mL; HDL Cholesterol 66.1 mg/dL (40.00-60.00); Non-African American GFR(CKD) 85.4 (60.0-200.0); Potassium 4.7 mmol/L (3.5-5.5); T4, Free (Free Thyroxine) 1.68 ng/dL (0.800-1.800); Total Bilirubin 0.6 mg/dL (0.30-1.20); Total Protein 6.5 g/dL (6.2-8.2); Triglycerides 49.5 mg/dL (0.00-149.00)
[2021-12-01 16:53] LABS: Chol/HDL Ratio 2.07 Ratio; LDL Cholesterol,Direct Reflex 62.1 mg/dL (0.00-129.00)
== END | disposition home or self-care (01) ==
LOC: LABWHC1 09:31
PROVIDERS: ATTEND Internal Medicine
DX: K21.00 Gastro-esophageal reflux disease with esophagitis, without bleeding (principal); E78.2 Mixed hyperlipidemia; R91.1 Solitary pulmonary nodule; E03.9 Hypothyroidism, unspecified
CPT/HCPCS: 36415; 80053; 80061; 82378; 82670; 83036; 83721; 84144; 84403; 84439; 84443; 85025

== ENCOUNTER → 2022-01-09 | Outpatient (CLI) | payer MEDICAID ==
--- NOTE | 2022-01-09 07:57 | MM ---
Reason for Exam: Follow-up at short interval from prior study. Last screening mammogram was performed 6 month(s) ago. Patient History: Menarche at age 10. First Full-Term at age 20. Postmenopausal. Currently using Estrogen, for 3 years. Currently using Progesterone, for 3 years. Patient used Hormonal Contraceptives for 9 years. 05/09/2015, Benign Core Biopsy on the right side. Paternal aunt had breast cancer, age 60. Risk Values: Betzy 5 year model risk: 1.7%. NCI Lifetime model risk: 7.1%. Prior Study Comparison: 05/29/2020 Bilateral Screening Mammogram, [facility]. 07/06/2021 Bilateral Screening Mammogram, [facility]. 07/18/2021 Left Diagnostic Mammogram, [facility]. Tissue Density: Left: The breast tissue is heterogeneously dense. This may lower the sensitivity of mammography. Findings: Analyzed By CAD. Stable group of slightly heterogeneous punctate calcifications in the left breast middle depth that partially layer on lateral magnification view. No increase in number of calcifications or new suspicious microcalcifications. Overall Assessment: Benign, BI-RAD 2 Management: Diagnostic Mammogram of both breasts in 6 months. Back on schedule. Electronically signed and approved by: Job Serrato M.D.
== END | disposition home or self-care (01) ==
LOC: RADMAMWWP 06:52
PROVIDERS: ATTEND Obstetrics & Gynecology
DX: R92.8 Other abnormal and inconclusive findings on diagnostic imaging of breast (principal); Z78.0 Asymptomatic menopausal state; Z80.3 Family history of malignant neoplasm of breast
CPT/HCPCS: 77061; 77065

== ENCOUNTER → 2022-04-15 | Outpatient (CLI) | payer MEDICAID ==
[2022-04-15 15:15] LABS: ALT 35 U/L (4-34); AST 26 U/L (14-36); African American GFR (CKD) >90 (>60 ml/min/1.73 sqM); Albumin 4.2 g/dL (3.5-5.0); Albumin/Globulin Ratio 1.8; Alkaline Phosphatase 92 U/L (38-126); Anion Gap 12 mmol/L; Blood Urea Nitrogen 11 mg/dL (7-17); Calcium 10.2 mg/dL (8.4-10.2); Carbon Dioxide 24 mmol/L (22-30); Chloride 101 mmol/L (98-107); Globulin 2.3 g/dL; Glucose 96 mg/dL (74-99); Non-African American GFR(CKD) >90 (>60 ml/min/1.73 sqM); Potassium 4.8 mmol/L (3.5-5.1); Sodium 137 mmol/L (137-145); Total Bilirubin 0.6 mg/dL (0.2-1.3); Total Protein 6.5 g/dL (6.3-8.2)
== END | disposition home or self-care (01) ==
LOC: LABWHC1 13:46
PROVIDERS: ATTEND Internal Medicine
DX: R94.4 Abnormal results of kidney function studies (principal)
CPT/HCPCS: 36415; 80053

== ENCOUNTER → 2022-06-05 | Outpatient (CLI) | payer MEDICAID ==
[2022-06-05 11:32] LABS: African American GFR (CKD) 112.4 (60.0-200.0); Albumin 4.4 g/dL (3.8-4.9); Albumin/Globulin Ratio 2.1 (1.60-3.17); Anion Gap 8.8 mmol/L (10.00-18.00); BUN/Creat Ratio 17.17 Ratio (12.00-20.00); Basophils # (A) 0.04 X 10*3/uL (0.00-0.10); Basophils % (A) 0.6 %; Blood Urea Nitrogen 10.3 mg/dL (9.0-27.0); Carbon Dioxide 26.2 mmol/L (20.0-27.5); Eosinophils # (A) 0.15 X 10*3/uL (0.04-0.35); Eosinophils % (A) 2.2 %; Globulin 2.1 g/dL (1.6-3.3); HCT 39.5 % (37.2-46.3); HDL Cholesterol 68.7 mg/dL (40.00-60.00); HGB 12.6 g/dL (12.0-15.0); Immature Grans, Automated 0.4 %; Lymphocytes # (A) 1.47 X 10*3/uL (0.90-5.00); Lymphocytes % (A) 21.7 %; MCHC 31.9 g/dL (32.0-37.0); Magnesium 1.9 mg/dL (1.5-2.4); Mean Platelet Volume 9.9 fL (9.5-12.2); Monocytes # (A) 0.42 X 10*3/uL (0.20-1.00); Monocytes % (A) 6.2 %; NRBC Per 100 WBC 0 /100 WBCS (0.0-0.0); Neutrophils # (A) 4.67 X 10*3/uL (1.80-7.70); Neutrophils % (A) 68.9 %; Platelet Count 371 X 10*3/uL (140-440); Potassium 4.6 mmol/L (3.5-5.5); RBC 4.34 X 10*6/uL (4.10-5.20); RDW 12.1 % (11.5-14.5); T4, Free (Free Thyroxine) 1.09 ng/dL (0.800-1.800); Total Bilirubin 0.4 mg/dL (0.30-1.20); Total Protein 6.5 g/dL (6.2-8.2); Triglycerides 48.9 mg/dL (0.00-149.00); WBC 6.78 X 10*3/uL (4.50-10.00)
[2022-06-05 11:38] LABS: Chol/HDL Ratio 2.36 Ratio; LDL Cholesterol,Direct Reflex 89.6 mg/dL (0.00-129.00)
--- NOTE | 2022-06-05 19:40 | CA ---
Transthoracic Echo Report Name: Robi Bolton Age: 61 Gender: F : 1960 Exam Date: 06/05/2022 15:04 Exam Location: [facility] Ht (in): 67 Wt (lb): 175 Ordering Physician: Adelita Yu MD Attending/Referring Phys: Magnetic Tester Loulou Garcia RDCS Procedure CPT: Indications: Z0000 Cardiac Hx: Technical Quality: Good Contrast 1: Total Dose (mL): Contrast 2: Total Dose (mL): MEASUREMENTS (Male / Female) Normal Values 2D ECHO LV Diastolic Diameter PLAX 3.9 cm 4.2 - 5.9 / 3.9 - 5.3 cm LV Systolic Diameter PLAX 2.5 cm IVS Diastolic Thickness 1.1 cm 0.6 - 1.0 / 0.6 - 0.9 cm LVPW Diastolic Thickness 1.3 cm 0.6 - 1.0 / 0.6 - 0.9 cm LV Relative Wall Thickness 0.6 RV Internal Dim ED PLAX 2.8 cm LA Systolic Diameter LX 2.8 cm 3.0 - 4.0 / 2.7 - 3.8 cm M-MODE Aortic Root Diameter MM 3.0 cm LA Systolic Diameter MM 3.0 cm LA Ao Ratio MM 1.0 MV E Point Septal Separation 0.3 cm AV Cusp Separation MM 1.8 cm DOPPLER MV Area PHT 3.7 cm??? Mitral E Point Velocity 53.3 cm/s Mitral A Point Velocity 73.8 cm/s Mitral E to A Ratio 0.7 MV Deceleration Time 206.4 ms MV E' Velocity 4.2 cm/s Mitral E to MV E' Ratio 12.8 TR Peak Velocity 225.4 cm/s TR Peak Gradient 20.3 mmHg Right Ventricular Systolic Press 25.0 mmHg FINDINGS Left Ventricle Mildly increased septal wall thickness. Mildly increased posterior wall thickness. Left ventricular ejection fraction is estimated at 50-55 %. Right Ventricle Normal right ventricular size and function. Right ventricular systolic pressure within normal limits. Right Atrium Normal right atrial size. Left Atrium Normal left atrial size. Mitral Valve Structurally normal mitral valve. Mild mitral regurgitation. Aortic Valve Trileaflet aortic valve. Mild aortic regurgitation. Tricuspid Valve Structurally normal tricuspid valve. Mild tricuspid regurgitation. Pulmonic Valve Structurally normal pulmonic valve. Pericardium Normal pericardium. Aorta Normal size aortic root and proximal ascending aorta. CONCLUSIONS Normal left ventricular dimension and systolic function Previewed by: Dr. Markus Brooke MD (Electronically Signed) Final Date: 05 June 2022 19:38
== END | disposition home or self-care (01) ==
LOC: RADECHMAIN 14:51
PROVIDERS: ATTEND Internal Medicine
CPT/HCPCS: 80053; 80061; 82378; 83036; 83721; 83735; 84439; 84443; 85025; 93306

== ENCOUNTER → 2022-06-17 | Outpatient (CLI) | payer MEDICAID ==
--- NOTE | 2022-06-17 07:44 | US ---
EXAMINATION TYPE: US duplex aorta DATE OF EXAM: 06/17/2022 COMPARISON: NONE CLINICAL HISTORY: I71.21 ANEURYSM OF THE ASCENDING AORTA WITHOUT RUP. TECHNIQUE: Multiple sonographic images of the abdominal aorta are obtained. FINDINGS: EXAM MEASUREMENTS: Abdominal Aorta: Proximal: 2.7 x 2.5cm Mid: 2.2 x 2.1cm Distal: 1.9 x 1.7cm Bifurcation: RT: 1.2 x 1.2cm LT: 1.0 x 1.1cm REAL ESTATE LOAN PROCESSOR NOTES: No evidence of AAA at this time. IMPRESSION: No evidence for abdominal aortic aneurysm at this time.
== END | disposition home or self-care (01) ==
LOC: RADUSWWP 06:49
PROVIDERS: ATTEND Internal Medicine
DX: I71.21 Aneurysm of the ascending aorta, without rupture (principal)
CPT/HCPCS: 93979

== ENCOUNTER → 2022-07-01 | Outpatient (CLI) | payer MEDICAID ==
--- NOTE | 2022-07-01 08:52 | BD ---
EXAMINATION TYPE: Axial Bone Density DATE OF EXAM: 07/01/2022 COMPARISON: 08/24/2019 CLINICAL HISTORY: 62 year old Female. ICD-10 CODE: M85.88 OTH DISRD OF BONE Height: 66.5 Weight: 176 FRAX RISK QUESTIONS: Family History (Parent hip fracture): no History of Fracture in Adulthood: yes ankle Secondary Osteoporosis: YES 3. Menopause before 45: yes age 41 Rheumatoid Arthritis: NO RISK FACTORS HISTORY OF: Surgery Hip(right/left): YES When: RIGHT 2011, LEFT 2014 Family History of Osteoporosis: NO Active: YES Diet low in dairy products/other sources of calcium: YES Postmenopausal woman: YES Take estrogen and/or progesterone medications: YES How long: 2016 Lost more than 2 inches in height since high school: YES Frequent falls: NO MEDICATIONS: Thyroid Medications: YES Which medication: Levothyroxine How Lon + YEARS Additional Medications: YES REFLUX , CHOLESTEROL , CALCIUM EXAM MEASUREMENTS: Bone mineral densitometry was performed using the [employer] System. Bone mineral density as measured about the Lumbar spine is: ----- L1-L4(G/cm2): 1.085 T Score Values are as follows: ----- L1: -0.8 ----- L2: -1.6 ----- L3: -1.1 ----- L4: 0.0 ----- L1-L4: -0.8 Bone mineral density has: Increased 1.2% since study of: 08/24/2019 Bone mineral density about the L Wrist (g/cm2): 0.596 T Score values are as follows: -----Dist. R+U: -1.9 -----Prox. R+U: -1.3 -----Radius total: -1.3 Bone mineral density has: Increased 3.0% since study of: 08/24/2019 FRAX%s: BILATERAL HIPS REPLACED NO FRAX IMPRESSION: Osteopenia (T Score between -2.5 and -1). There is slightly increased risk of fracture and the patient may be considered for treatment. Re-Screen 2-5 years. NOTE: T-SCORE=SD OF THE YOUNG ADULT MEAN.
== END | disposition home or self-care (01) ==
LOC: RADBDWWP 07:19
PROVIDERS: ATTEND Internal Medicine
DX: M85.89 Other specified disorders of bone density and structure, multiple sites (principal)
CPT/HCPCS: 77080

== ENCOUNTER → 2022-07-10 | Outpatient (CLI) | payer MEDICAID ==
--- NOTE | 2022-07-15 09:14 | MM ---
Reason for Exam: Additional evaluation requested from prior study. Last screening mammogram was performed 12 month(s) ago. Patient History: Menarche at age 10. First Full-Term at age 20. Postmenopausal. Patient used Estrogen for 3 years. Currently using Progesterone, for 3 years. Patient used Hormonal Contraceptives for 9 years. 05/09/2015, Benign Core Biopsy on the right side. Paternal aunt had breast cancer, age 60. Risk Values: Betzy 5 year model risk: 1.7%. NCI Lifetime model risk: 6.9%. Tissue Density: The breast tissue is heterogeneously dense. This may lower the sensitivity of mammography. Findings: Analyzed By CAD. There are benign-appearing calcifications within the mid left breast. Few scattered punctate calcifications appear stable. Additional benign coarse or calcifications may be developing. No significant interval change from diagnostic imaging on 01/09/2022. No spiculated or lobular masses, architectural distortion or other secondary signs of malignancy are mammographically apparent. Overall Assessment: Benign, BI-RAD 2 Management: Screening Mammogram of both breasts in 1 year. A negative mammogram report should not preclude additional follow up of suspicious palpable abnormalities. Patient should continue monthly self breast exam. A clinical breast exam by your physician is recommended on an annual basis and results should be correlated with mammographic findings. Electronically signed and approved by: Eliezer Lima D.O. Radiologis
== END | disposition home or self-care (01) ==
LOC: RADMAMWWP 06:59
PROVIDERS: ATTEND Obstetrics & Gynecology
DX: R92.8 Other abnormal and inconclusive findings on diagnostic imaging of breast (principal); Z78.0 Asymptomatic menopausal state; Z80.3 Family history of malignant neoplasm of breast
CPT/HCPCS: 77062; 77066

== ENCOUNTER → 2022-12-24 | Outpatient (CLI) | payer MEDICAID ==
[2022-12-24 11:00] LABS: Basophils # (A) 0.03 X 10*3/uL (0.00-0.10); Basophils % (A) 0.5 %; Eosinophils # (A) 0.19 X 10*3/uL (0.04-0.35); Eosinophils % (A) 3.2 %; HCT 38.4 % (37.2-46.3); HGB 12.2 g/dL (12.0-15.0); Immature Grans, Automated 0.2 %; Lymphocytes # (A) 1.78 X 10*3/uL (0.90-5.00); Lymphocytes % (A) 30.3 %; MCH 29.5 pg (27.0-32.0); MCHC 31.8 g/dL (32.0-37.0); MCV 92.8 fL (80.0-97.0); Monocytes % (A) 6.8 %; NRBC Per 100 WBC 0 /100 WBCS (0.0-0.0); Neutrophils # (A) 3.47 X 10*3/uL (1.80-7.70); Platelet Count 345 X 10*3/uL (140-440); RBC 4.14 X 10*6/uL (4.10-5.20); RDW 12.8 % (11.5-14.5); WBC 5.88 X 10*3/uL (4.50-10.00)
[2022-12-24 11:31] LABS: ALT 24 U/L (8-44); AST 18 U/L (13-35); African American GFR (CKD) 106.1 (60.0-200.0); Albumin 4.4 g/dL (3.8-4.9); Alkaline Phosphatase 81 U/L (41-126); BUN/Creat Ratio 15.86 Ratio (12.00-20.00); Blood Urea Nitrogen 11.1 mg/dL (9.0-27.0); Calcium 9.7 mg/dL (8.7-10.3); Carbon Dioxide 24.8 mmol/L (20.0-27.5); Chloride 104 mmol/L (96-109); Chol/HDL Ratio 2.69 Ratio; Glucose 89 mg/dL (70-110); LDL Cholesterol,Calculated 74.6 mg/dL (0.0-131.0); Non-African American GFR(CKD) 91.6 (60.0-200.0); Potassium 4.4 mmol/L (3.5-5.5); Sodium 139 mmol/L (135-145); Total Protein 6.4 g/dL (6.2-8.2); VLDL Calculation 18.32 mg/dL (5.00-40.00)
[2022-12-24 13:37] LABS: Appearance,Urine Turbid (Clear); Bacteria,Urine Trace /HPF (None Seen); Bilirubin,Urine Negative (Negative); Blood,Urine Negative (Negative); Color,Urine Dark Yellow (Yellow); Ketones,Urine Negative (Negative); Nitrite,Urine Negative (Negative); PH, Urine 5.5 (5.0-8.0); Specific Gravity,Urine 1.024 (1.001-1.030)
== END | disposition home or self-care (01) ==
LOC: LABWHC1 07:19
PROVIDERS: ATTEND Internal Medicine
DX: E03.9 Hypothyroidism, unspecified (principal); E78.2 Mixed hyperlipidemia; K21.00 Gastro-esophageal reflux disease with esophagitis, without bleeding; N13.9 Obstructive and reflux uropathy, unspecified
CPT/HCPCS: 36415; 80053; 80061; 81001; 83036; 84439; 84443; 85025

== ENCOUNTER → 2023-01-21 | Outpatient (CLI) | payer MEDICAID ==
[2023-01-21 22:41] LABS: Appearance,Urine Clear (Clear); Bilirubin,Urine Negative (Negative); Blood,Urine Negative (Negative); Color,Urine Yellow (Yellow); Ketones,Urine Negative (Negative); Nitrite,Urine Negative (Negative); Specific Gravity,Urine 1.003 (1.001-1.030); Urobilinogen,Urine 0.2 E.U./DL
== END | disposition home or self-care (01) ==
LOC: LABWHC1 14:35
PROVIDERS: ATTEND Internal Medicine
DX: N13.9 Obstructive and reflux uropathy, unspecified (principal)
CPT/HCPCS: 81003

== ENCOUNTER → 2023-06-30 | Outpatient (CLI) | payer MEDICAID ==
--- NOTE | 2023-06-30 07:46 | US ---
EXAMINATION TYPE: US carotid duplex BILAT DATE OF EXAM: 06/30/2023 COMPARISON: NONE CLINICAL INDICATION: Female, 63 years old with history of I65.23 OCCLUSION AND STENOSIS; Patient is a former smoker; patient denies any relevant signs or symptoms at this time. TECHNIQUE: Carotid duplex ultrasound examination. Indirect Doppler criteria was utilized. FINDINGS: EXAM MEASUREMENTS: RIGHT: Peak Systolic Velocity (PSV) cm/sec ----- Right CCA: 63 ----- Right ICA: 78 ----- Right ECA: 64 ICA/CCA ratio: 1.2 RIGHT: End Diastole cm/sec ----- Right CCA: 26 ----- Right ICA: 31 ----- Right ECA: 14 LEFT: Peak Systolic Velocity (PSV) cm/sec ----- Left CCA: 68 ----- Left ICA: 96 ----- Left ECA: 64 ICA/CCA ratio: 1.4 LEFT: End Diastole cm/sec ----- Left CCA: 26 ----- Left ICA: 40 ----- Left ECA: 14 VERTEBRALS (direction of flow): Right Vertebral: Antegrade Left Vertebral: Antegrade Rhythm: Normal IMMIGRATION SPECIALIST NOTES: No elevated velocities, intimal thickening; minimal calcifications within Left CCA Bulb. IMPRESSION: Less than 50% stenosis of the bilateral carotid bifurcations. Criteria for Assigning % of Stenosis / Diameter reduction (Estimation based on the indirect measurements of the internal carotid artery velocities (ICA PSV). 1. Normal (no stenosis)=ICA PSV < 125 cm/s: ratio < 2.0: ICA EDV<40 cm/s. 2. Less than 50% stenosis=ICA PSV < 125 cm/s: ratio < 2.0: ICA EDV<40 cm/s. 3. 50 to 69% stenosis=ICA PSV of 125 to 230 cm/s: ration 2.0 ? 4.0: ICA EDV 40-100 cm/s. 4. Greater than 70% stenosis to near occlusion= ICA PSV > 230 cm/s: ratio > 4.0: ICA EDV > 100 cm/s. 5. Near occlusion= ICA PSV velocities may be low or undetectable: variable ratio and ICA EDV. 6. Total occlusion=unable to detect flow.
== END | disposition home or self-care (01) ==
LOC: RADUSWWP 07:00
PROVIDERS: ATTEND Internal Medicine
DX: I65.23 Occlusion and stenosis of bilateral carotid arteries (principal); Z87.891 Personal history of nicotine dependence
CPT/HCPCS: 93880

== ENCOUNTER → 2023-08-05 | Outpatient (CLI) | payer MEDICAID ==
--- NOTE | 2023-08-05 16:30 | CA ---
Transthoracic Echo Report Name: Robi Bolton Age: 63 Gender: F : 1960 Exam Date: 08/05/2023 14:31 Exam Location: [facility] Ht (in): 67 Wt (lb): 170 Ordering Physician: Rukhsana Reeves MD ([id number]) Attending/Referring Phys: Budget Record Clerk Xin Conde RDCS Procedure CPT: Indications: I25.10 ATHSCL HEART DISEASE OF [place] CORONARY ART Cardiac Hx: Technical Quality: Excellent Contrast 1: Total Dose (mL): Contrast 2: Total Dose (mL): MEASUREMENTS (Male / Female) Normal Values 2D ECHO LV Diastolic Diameter PLAX 4.4 cm 4.2 - 5.9 / 3.9 - 5.3 cm LV Systolic Diameter PLAX 2.9 cm IVS Diastolic Thickness 1.0 cm 0.6 - 1.0 / 0.6 - 0.9 cm LVPW Diastolic Thickness 0.9 cm 0.6 - 1.0 / 0.6 - 0.9 cm LV Relative Wall Thickness 0.4 RV Internal Dim ED PLAX 3.4 cm LA Systolic Diameter LX 3.3 cm 3.0 - 4.0 / 2.7 - 3.8 cm LV Diastolic Volume MOD 4C 97.1 cm??? LV Systolic Volume MOD 4C 44.4 cm??? LV Ejection Fraction MOD 4C 54.3 % LV Cardiac Index MOD 4C 1533.8 cm???/min???m??? LV Diastolic Length 4C 8.2 cm LV Systolic Length 4C 6.6 cm LV Diastolic Volume MOD 2C 84.4 cm??? LV Systolic Volume MOD 2C 23.6 cm??? LV Ejection Fraction MOD 2C 72.0 % LV Cardiac Index MOD 2C 1769.0 cm???/min???m??? LV Diastolic Length 2C 8.2 cm LV Systolic Length 2C 6.1 cm LA Volume 53.1 cm??? 18 - 58 / 22 - 52 cm??? LA Volume Index 27.6 cm???/m??? 16 - 28 cm???/m??? M-MODE Aortic Root Diameter MM 3.2 cm MV E Point Septal Separation 0.3 cm AV Cusp Separation MM 2.4 cm DOPPLER AV Peak Velocity 124.1 cm/s AV Peak Gradient 6.2 mmHg MV Area PHT 3.4 cm??? Mitral E Point Velocity 66.9 cm/s Mitral A Point Velocity 58.3 cm/s Mitral E to A Ratio 1.1 MV Deceleration Time 224.6 ms MV E' Velocity 5.7 cm/s Mitral E to MV E' Ratio 11.7 TR Peak Velocity 215.2 cm/s TR Peak Gradient 18.5 mmHg Right Ventricular Systolic Press 23.5 mmHg FINDINGS Left Ventricle Left ventricular ejection fraction is estimated at 60-65 %. Left ventricular cavity size normal. Mildly increased septal wall thickness. Right Ventricle Mild right ventricular dilatation. Right ventricular systolic pressure within normal limits. Right Atrium Normal right atrial size. Left Atrium Mildly increased left atrial volume. Mitral Valve Structurally normal mitral valve. Trace mitral regurgitation. Aortic Valve Trileaflet aortic valve. Trace to mild aortic regurgitation. Tricuspid Valve Structurally normal tricuspid valve. Mild tricuspid regurgitation. Pulmonic Valve Structurally normal pulmonic valve. Mild pulmonic regurgitation. Pericardium No pericardial effusion. Aorta Normal size aortic root and proximal ascending aorta. CONCLUSIONS Normal LV systolic function Mild aortic regurgitation Previewed by: Dr. Sandip Diego MD (Electronically Signed) Final Date: 05 August 2023 16:30
== END | disposition home or self-care (01) ==
LOC: RADECHMAIN 14:24
PROVIDERS: ATTEND Internal Medicine Interventional Cardiology
DX: I25.10 Atherosclerotic heart disease of native coronary artery without angina pectoris (principal); I35.1 Nonrheumatic aortic (valve) insufficiency
CPT/HCPCS: 93306

== ENCOUNTER → 2023-08-06 | Outpatient (CLI) | payer MEDICAID ==
--- NOTE | 2023-08-10 15:00 | MM ---
Reason for Exam: Screening (asymptomatic). Last mammogram was performed 1 year(s) and 1 month(s) ago. Patient History: Menarche at age 10. First Full-Term at age 20. Postmenopausal. Patient used Estrogen for 3 years. Patient used Progesterone for 3 years. Patient used Hormonal Contraceptives for 9 years. 05/09/2015, Benign Core Biopsy on the right side. Paternal aunt had breast cancer, age 60. Risk Values: Betzy 5 year model risk: 1.8%. NCI Lifetime model risk: 6.6%. Prior Study Comparison: 07/18/2021 Left Diagnostic Mammogram, [facility]. 01/09/2022 Left MG 3D diag mammo w/cad LT, [facility]. 07/10/2022 Bilateral MG 3D diag mammo w/cad RADHA, [facility]. Tissue Density: The breast tissue is heterogeneously dense. This may lower the sensitivity of mammography. Findings: Analyzed By CAD. The pattern is symmetrical and stable. No significant interval changes. There are some scattered punctate calcifications present bilaterally. No suspicious groups of microcalcifications, spiculated or lobular masses, architectural distortion or other secondary signs of malignancy are mammographically apparent. Overall Assessment: Benign, BI-RAD 2 Management: Screening Mammogram of both breasts in 1 year. A negative mammogram report should not preclude additional follow up of suspicious palpable abnormalities. Patient should continue monthly self breast exam. A clinical breast exam by your physician is recommended on an annual basis and results should be correlated with mammographic findings. Electronically signed and approved by: Eliezer Lima D.O. Radiologis
== END | disposition home or self-care (01) ==
LOC: RADMAMWWP 06:51
PROVIDERS: ATTEND Obstetrics & Gynecology
DX: Z12.31 Encounter for screening mammogram for malignant neoplasm of breast (principal); Z80.3 Family history of malignant neoplasm of breast; Z78.0 Asymptomatic menopausal state
CPT/HCPCS: 77063; 77067

== ENCOUNTER → 2023-08-15 | Outpatient (CLI) | payer MEDICAID ==
--- NOTE | 2023-08-15 12:10 | CA ---
Stress Echo Report Robi Bolton Age: 63 Gender: F : 1960 Exam Date: 08/15/2023 09:38 Exam Location: [place] [facility] Ht (in): 67 Wt (lb): 170 Ordering Physician: Rukhsana Reeves MD ([id number]) Referring Physician: RUKHSANA REEVES,, Curriculum Assistant: SILVIA, Technologist Procedure CPT: Indication: I25.10; I35.1 NONRHEUMATIC AORTIC (VALVE) INSUFFIC ICD-9 Codes: Rhythm: Patient History: Heart murmer and palpitations Cardiac Medications: Medications in past 24 hours: Contrast: Stress Results Protocol: Rafael Total dose(mL): Exercise Duration (min:sec): 6:[address] Depression (mm): Angina Score: Armstrong Score: METS: 7.3 Resting HR: 57 Resting BP: 125 / 79 Peak HR: 139 Peak BP: 158 / 96 Max Predicted HR: 155 90 % Max Predicted HR Target HR: 132 Double Product: 16249 Stress Summary: BP Response: Reason for Termination: Reached target heart rate or work-load Cardiac Symptoms: No symptoms ECG Analysis Resting ECG: Stress ECG: Arrhythmia: Echo Analysis Resting Echo: Peak Echo Analysis: MEASUREMENTS (Male/Female) Normal Values CONCLUSIONS Average exercise capacity and a Rafael protocol of 6 minutes 7.3 METs of workload achieved Normal heart rate and blood pressure response No symptoms No ECG evidence for ischemia Augmentation of overall LV contractility without development of any wall motion abnormalities Impression No ECG or echocardiographic evidence for ischemia at this workload level Dr. Arnoldo Bassett MD (Electronically Signed) Final Date: 15 August 2023 12:09
== END | disposition home or self-care (01) ==
LOC: RADNMMAIN 09:08
PROVIDERS: ATTEND Internal Medicine Interventional Cardiology
DX: I35.1 Nonrheumatic aortic (valve) insufficiency (principal); I25.10 Atherosclerotic heart disease of native coronary artery without angina pectoris
CPT/HCPCS: 93351

== ENCOUNTER → 2023-10-28 | Outpatient (CLI) | payer MEDICAID ==
[2023-10-28 09:24] VITALS: BP 131/86; PULSE 56; RESP 17; TEMP 97.9
--- NOTE | 2023-10-28 13:13 | P.HPOB ---
History of Present Illness H&P Date: 10/28/23 Chief Complaint: the patient is here for her routine gynecologic exam. This is a 63-year-old with an LMP of 2000. The patient is here to establish with this office. It has been about 1 year since her last pelvic exam. She previously saw Dr. Cronin for her gynecologic care. She has been on some form of HRT for about 4 years. She initially started HRT pellets which included estrogen and testosterone with oral progesterone. She believes she started this about [address] Aldana. The patient chose to discontinue the hormone pellets, but when she did she had significant hot flashes, night sweats and help very "crabby". Dr. Cronin put her on Prempro 0.625/2.5 daily about 1 year ago and this significantly helped with her symptoms. She is without gynecologic complaints and denies any postmenopausal bleeding during the past 2-3 years. She did have an endometrial biopsy in 2020 for some postmenopausal bleeding on HRT and this was benign on 02/14/2021. The biopsy was done by Dr. Mena Retana. Review of Systems She believes she has gained about 15 pounds over the past year. She denies respiratory, cardiac, or GI problems. Past Medical History Past Medical History: GERD/Reflux, Osteoarthritis (OA), Thyroid Disorder Additional Past Medical History / Comment(s): Other HX: hypothyroidism. Basal cell exc. 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 She thinks she may have had some type of conization of her cervix, but is uncertain of this and is uncertain of the date. History of Any Multi-Drug Resistant Organisms: None Reported Past Surgical History: Appendectomy, Cholecystectomy, Joint Replacement, Orthopedic Surgery, Tubal Ligation Additional Past Surgical History / Comment(s): 05/15/15 Total L hip arthroplasty anterior approach with cell saver. RT ANKLE ORIF, RT HIP REPLACEMENT. Eye lid surg. Colonoscopy with EGD 2019(next after 10yr). Past Anesthesia/Blood Transfusion Reactions: No Reported Reaction, Motion Sickness Additional Past Anesthesia/Blood Transfusion Reaction / Comment(s): Pt has never recieved blood. Past Psychological History: No Psychological Hx Reported Additional Psychological History / Comment(s): TAKES XANAX TO SLEEP. Pt resides with her spouse. She is independent. She uses no assistive device. She drives. Smoking Status: Former smoker Past Alcohol Use History: Occasional (3 drinks per week.) Additional Past Alcohol Use History / Comment(s): Pt started smoking in 1973 and quit in 1999. Past Drug Use History: None Reported Additional History: She is . She has been with her boyfriend since 2020. They do not live together. She works for [employer] in the [employer]. - Past Family History Mother Family Medical History: Cancer Additional Family Medical History / Comment(s): LUNG cancer. . Father Family Medical History: Cancer Additional Family Medical History / Comment(s): KIDNEY cancer. . Brother(s) Family Medical History: Cancer Additional Family Medical History / Comment(s): LUNG cancer. . Another brother had a closed head injury. Medications and Allergies Home Medications Medication Instructions Recorded Confirmed Type Lansoprazole 30 mg PO DAILY 05/02/15 10/28/23 History Levothyroxine Sodium [Synthroid] 100 mcg PO DAILY 05/26/19 10/28/23 History Magnesium (Unknown Dose) 1 tab PO DAILY 05/26/19 10/28/23 History Vitamin B12 (Unknown Dose) 1 tab PO DAILY 05/26/19 10/28/23 History Vitamin D (Unknown Dose) 1 tab PO DAILY 05/26/19 10/28/23 History Ascorbic Acid [Vitamin C] 500 mg PO DAILY 12/06/20 10/28/23 History Atorvastatin [Lipitor] 20 mg PO DAILY 12/06/20 10/28/23 History Aspirin 81 mg PO DAILY 10/28/23 10/28/23 History Estrogen,Con/M-Progest Acet 1 tab PO DAILY 10/28/23 10/28/23 History [Prempro 0.625-2.5 mg Tablet] Allergies Allergy/AdvReac Type Severity Reaction Status Date / Time meperidine HCl [From Demerol] AdvReac Unknown Nausea & Verified 10/28/23 08:40 Vomiting Exam Vital Signs Temp Pulse Resp BP Pulse Ox 10/28/23 08:44 97.9 F 56 L 17 131/86 97 Intake and Output 10/27/23 10/28/23 10/28/23 22:59 06:59 14:59 Other: Weight 81.647 kg height 5 feet 6 inches, weight 180 pounds, BMI 29.1. This is a well-developed well-nourished white female who is alert and oriented times 3 in no acute distress. HEENT: Within normal limits. NECK: Supple without mass or thyromegaly. CHEST AND LUNGS: Clear to auscultation. HEART: Regular rate and rhythm. BREASTS: Are without mass or discharge. AXILLARY EXAM: Negative for adenopathy. BACK: Negative for CVA tenderness. ABDOMEN: Soft, nontender, without palpable masses. PELVIC EXAM: Normal external genitalia with mild atrophy. Cervix and vagina appear normal with mild atrophy. There is no unusual discharge. There is no evidence of prolapse. The uterus is midposition, nongravid size and nontender. There are no palpable adnexal masses or tenderness. RECTAL EXAM: rectovaginal exam is negative for mass or tenderness and is negative for occult blood. EXTREMITIES: Nontender. IMPRESSION: 1. 63-year-old menopausal female with normal gynecologic exam. 2. Improved menopausal symptoms on HRT. The most significant menopausal symptoms during the past few years was noticed when she discontinued HRT with subcutaneous estrogen and testosterone pellets. She states she has done well on Prempro 0.65/2.5 during the past year. 3.history of osteopenia by bone density test on 07/10/2022. PLAN: 1. Pap smear cotest was performed. From Dr. Cronin's records, she had ne gative Pap smears on 06/27/2020 and 10/17/2021. Because of her history of a possible conization of the cervix with unknown date, we will continue Pap smears. She states she will look into trying to get records from [facility] regarding the date and pathology from that procedure. 2. Self breast awareness was discussed with the patient. We have also discussed symptoms associated with inflammatory breast cancer. 3. Screening mammogram was done on 08/06/2023 and was benign. She will repeat this after 1 year. 4. Osteoporosis prevention was discussed. I have stressed the importance of adequate calcium, vitamin D and regular exercise. Recommended amounts of calcium and vitamin D were also discussed. We will plan repeating the bone density test in 1 year. 5. We have had a long discussion regarding the WHI study and HRT. We have discussed the possible increased risk for breast cancer, heart attack, stroke and blood clots. I have recommended that we try to wean her off of HRT and to find the lowest effective dose and used for the shortest time. She will try Prempro 0.45/1.5 daily. The electronic prescription will be sent to [facility] in [facility]. 6. If she is doing well after 6 months with this Prempro dose, we will consider decreasing it to even a lower dose and eventually weaning off of it. She was instructed to call if she is having issues with this dose. 7. She was advised to return in one year for her annual well woman exam and as needed.
== END ==
LOC: WWCWWP 08:31
PROVIDERS: ATTEND Obstetrics & Gynecology
DX: Z01.419 Encounter for gynecological examination (general) (routine) without abnormal findings (principal); N95.1 Menopausal and female climacteric states; M85.80 Other specified disorders of bone density and structure, unspecified site; M19.90 Unspecified osteoarthritis, unspecified site; Z88.8 Allergy status to other drugs, medicaments and biological substances; Z98.51 Tubal ligation status; Z87.891 Personal history of nicotine dependence

== ENCOUNTER → 2023-12-01 | Outpatient (CLI) | payer MEDICAID ==
--- NOTE | 2023-12-01 15:30 | CTL ---
EXAMINATION TYPE: CT Low Dose Lung DATE OF EXAM: 12/01/2023 7:41 AM CLINICAL INDICATION:Female, 63 years old with history of Z87.891 personal hx tobacco use; history of smoker , history of tobacco use. COMPARISON: None. TECHNIQUE: Multiple axial non-contrast scans were obtained from approximately the lung apices through the upper abdomen using low dose technique. Coronal and sagittal reformatted images were obtained. L ow dose technique was utilized. CT DLP: 98.6 mGycm, Automated exposure control for dose reduction was used. CT Contrast: Contrast used: None Oral contrast used: None FINDINGS: ======== Lack of intravenous contrast and low dose technique limits the evaluation of the vascular and soft ti ssue structures. LUNGS: No evidence of pulmonary fibrosis. No evidence of focal consolidation, pneumothorax or pleural effusion. Nodules: RUL: None. RML: None. RLL: A 2 mm nodule is identified on series 6, image 35. SAM: 5 mm nodule is identified in the left upper lobe on series 6 image 27. LLL: None. AIRWAY: Patent and unremarkable. HEART: Size within normal limits. MEDIASTINUM: No gross evidence of adenopathy. VASCULATURE: No aortic aneurysm. MUSCULOSKELETAL: No acute osseous abnormalities SOFT TISSUES/LYMPH NODES: Unremarkable. LOWER NECK: No significant findings. UPPER ABDOMEN: No significant findings. IMPRESSION: 1. No clinically significant pulmonary nodules. CT LUNG RAD AND CT CHEST RECOMMENDATION: 2. Routine annual follow LD CT chest S Modifier (other clinically significant findings): None Recommend smoking cessation (if current smoker), or continuation of smoking cessation (if prior smoke r). Annual screening for lung cancer with low-dose computed tomography is recommended in adults ages 55 to 77 years who have a 30 pack-year smoking history and currently smoke or have quit within the pa st 15 years. Screening should be discontinued once a person has not smoked for 15 years or develops a health problem that substantially limits life expectancy or the ability or willingness to have curat caitlyn lung surgery. Lung rads 2021 [email or web address]
== END | disposition home or self-care (01) ==
LOC: RADCTMAIN 06:53
PROVIDERS: ATTEND Internal Medicine Critical Care Medicine
DX: Z12.2 Encounter for screening for malignant neoplasm of respiratory organs (principal); Z87.891 Personal history of nicotine dependence
CPT/HCPCS: 71271

== ENCOUNTER → 2023-12-08 | Outpatient (CLI) | payer MEDICAID ==
[2023-12-08 10:42] LABS: Basophils # (A) 0.05 X 10*3/uL (0.00-0.10); Basophils % (A) 0.8 %; Eosinophils % (A) 3.1 %; HCT 37.7 % (37.2-46.3); HGB 12.1 g/dL (12.0-15.0); Lymphocytes # (A) 1.71 X 10*3/uL (0.90-5.00); Lymphocytes % (A) 26.7 %; MCH 29.1 pg (27.0-32.0); MCHC 32.1 g/dL (32.0-37.0); MCV 90.6 FL (80.0-97.0); Mean Platelet Volume 9.7 FL (9.5-12.2); Monocytes # (A) 0.44 X 10*3/uL (0.20-1.00); Monocytes % (A) 6.9 %; NRBC Per 100 WBC 0 X 10*3/uL (0.00-0.01); Neutrophils # (A) 3.98 X 10*3/uL (1.80-7.70); Neutrophils % (A) 62.2 %; Platelet Count 342 X 10*3/uL (140-440); RBC 4.16 X 10*6/uL (4.10-5.20); RDW 12.7 % (11.5-14.5)
[2023-12-08 11:06] LABS: ALT 21 U/L (8-44); AST 18 U/L (13-35); Albumin 4.2 g/dL (3.8-4.9); Alkaline Phosphatase 63 U/L (41-126); BUN/Creat Ratio 22.17 Ratio (12.00-20.00); Blood Urea Nitrogen 13.3 mg/dL (9.0-27.0); Calcium 9.8 mg/dL (8.7-10.3); Carbon Dioxide 24.7 mmol/L (21.6-31.8); Chloride 106 mmol/L (96-109); Chol/HDL Ratio 2.44 Ratio; Glucose 96 mg/dL (70-110); LDL Cholesterol,Calculated 74.8 mg/dL (0.0-131.0); Potassium 4.4 mmol/L (3.5-5.5); Sodium 140 mmol/L (135-145); Total Bilirubin 0.4 mg/dL (0.3-1.2); Total Protein 6.2 g/dL (6.2-8.2); VLDL Calculation 14.22 mg/dL (5.00-40.00)
== END | disposition home or self-care (01) ==
LOC: LABWHC1 06:47
PROVIDERS: ATTEND Internal Medicine
DX: E03.9 Hypothyroidism, unspecified (principal); E78.2 Mixed hyperlipidemia; K21.00 Gastro-esophageal reflux disease with esophagitis, without bleeding
CPT/HCPCS: 36415; 80053; 80061; 83036; 84443; 85025

== ENCOUNTER → 2024-04-13 | Outpatient (CLI) | payer MEDICAID ==
--- NOTE | 2024-04-13 16:46 | P.PN ---
Progress Note - Text Progress Note Date: 04/13/24 The patient called asking about her HRT. Prior to seeing me, she was on Prempro 0.625. I prescribed Prempro 0.45 daily. She states she finally ran out of the Prempro 0.625 and filled the prescription for Prempro 0.45 which she has yet to start. She has a 60-day supply of this and states her insurance changed and her new insurance will not cover Prempro. She would like to continue weaning down from the HRT she will use the Prempro 0.45 as directed. A new prescription for estradiol 0.5 mg daily with micronized progesterone 100 mg daily will be sent to [facility] in [facility]. Will take 1 of each daily. She was instructed to call if she is having problems.
== END ==
LOC: WWCWWP 13:45
PROVIDERS: ATTEND Obstetrics & Gynecology
DX: Z04.89 Encounter for examination and observation for other specified reasons (principal); Z88.8 Allergy status to other drugs, medicaments and biological substances; Z87.891 Personal history of nicotine dependence

== ENCOUNTER 2024-06-04 05:55 | Day surgery (SDC) | payer MEDICARE ==
[2024-06-01 08:52] VITALS: BMI 26.6
[2024-06-04 06:43] VITALS: RESP 16; TEMP 98.7
[2024-06-04] MEDS: IV FLUID CONTINUATION 1,000 ML IV ONE (06:52)
[2024-06-04] MEDS: LACTATED RINGERS 1,000 ML IV SCH (06:54)
[2024-06-04] MEDS ORDERED: PROPOFOL 10 MG/ML 20 ML VIAL IV ONE (07:15)
[2024-06-04] MEDS ORDERED: LIDOCAINE 2% (PF) 20 MG/ML 5 ML VIAL ONE (07:15)
--- NOTE | 2024-06-04 07:37 | P.PCN ---
Date of Procedure: 06/04/24 Procedure(s) Performed: Brief history: Patient is a pleasant 63-year-old white female scheduled for an elective upper endoscopy as well as colonoscopy as a part of evaluation of GERD/intermittent dysphagia to solids and screening for colon cancer Procedure performed: Esophagogastroduodenoscopy biopsy and dilation Colonoscopy Preoperative diagnosis: GERD/intermittent dysphagia to solid Screening for colon cancer Anesthesia: MAC Procedure: After informed consent was obtained from the patient was brought into the endoscopy unit and IV sedation was administered by anesthesia under continuous monitoring. Initially upper endoscopy was done. The Olympus GF 160 video endoscope was inserted inserted into the mouth and esophagus intubated without any difficulty and was gradually advanced into the stomach and duodenum and carefully examined. The bulb and second part of the duodenum appeared normal. Biopsies were done from the duodenum rule out celiac disease. The scope was then withdrawn into the stomach adequately insufflated with air and upon careful examination the antrum had mild gastritis and biopsies were done from this area. Mucosa of the d body, cardia and fundus appeared normal. The scope was then withdrawn into the esophagus. Small hiatal hernia noted the GE junction was located at 40 cm to the incisors. It appeared regular with no erythema erosions or ulcerations. There was a distal esophageal Schatzki's ring identified that was dilated using 20 mm TTS balloon for 60 seconds. Rest of the esophagus appeared normal. Patient tolerated the procedure well. At this time the patient continued to remain sedation. Initial digital rectal examination was normal. Olympus CF 160 video colonoscope was then inserted into the rectum and gradually advanced to the cecum without any difficulty. Careful examination was performed as the scope was gradually being withdrawn. The prep was excellent. The cecum, ascending colon, transverse colon, descending colon, sigmoid colon and rectum appeared normal. Scattered sigmoid diverticulosis retroflexion was performed in the rectum and no lesions were noted. Patient tolerated the procedure well. Impression: 1. Upper endoscopy revealed mild antral gastritis, small hiatal hernia and distal esophageal Schatzki's ring status post balloon dilation using 20 mm TTS balloon 2. Colonoscopy revealed scattered diverticulosis but notes of colorectal neoplasia Recommendations: Findings of this examination were discussed with the patient as well as her family. Follow with the biopsy results. Continue pantoprazole 40 mg daily and follow antireflux measures. She was advised to have repeat screening: In 10 years.
[2024-06-04 07:56] VITALS: BP 132/84; PULSE 50
== END 2024-06-04 08:36 | disposition home or self-care (01) ==
LOC: ORWHC2ENDO 05:55
PROVIDERS: ATTEND Internal Medicine Gastroenterology
DX: Z12.11 Encounter for screening for malignant neoplasm of colon (principal); K57.30 Diverticulosis of large intestine without perforation or abscess without bleeding; K44.9 Diaphragmatic hernia without obstruction or gangrene; K22.2 Esophageal obstruction; K31.89 Other diseases of stomach and duodenum; K29.70 Gastritis, unspecified, without bleeding; K21.9 Gastro-esophageal reflux disease without esophagitis; E03.9 Hypothyroidism, unspecified; Z85.828 Personal history of other malignant neoplasm of skin; Z79.899 Other long term (current) drug therapy; Z79.890 Hormone replacement therapy; Z90.49 Acquired absence of other specified parts of digestive tract; Z98.890 Other specified postprocedural states
CPT/HCPCS: 43239; 43249; J2704; J2003; C1726; G0121; 88305

== ENCOUNTER → 2024-06-10 | Outpatient (CLI) | payer MEDICARE ==
[2024-06-10 20:34] LABS: Gliadin AB IgA, Deaminated Negative (Negative); Gliadin AB IgA, Unit 1.2 U/mL; Gliadin AB IgG, Deaminated Negative (Negative); Gliadin AB IgG, Unit <0.4 U/mL
== END | disposition home or self-care (01) ==
LOC: LABWHC1 11:07
PROVIDERS: ATTEND Internal Medicine Gastroenterology
DX: R76.8 Other specified abnormal immunological findings in serum (principal)
CPT/HCPCS: 36415; 83516

== ENCOUNTER → 2024-06-17 | Outpatient (CLI) | payer MEDICARE ==
[2024-06-17 10:28] LABS: Basophils # (A) 0.06 X 10*3/uL (0.00-0.10); Basophils % (A) 0.9 %; Eosinophils # (A) 0.17 X 10*3/uL (0.04-0.35); Eosinophils % (A) 2.7 %; HGB 13.2 g/dL (12.0-15.0); Lymphocytes # (A) 1.73 X 10*3/uL (0.90-5.00); MCH 29.1 pg (27.0-32.0); MCHC 32.2 g/dL (32.0-37.0); MCV 90.3 FL (80.0-97.0); Mean Platelet Volume 9.9 FL (9.5-12.2); Monocytes # (A) 0.36 X 10*3/uL (0.20-1.00); Monocytes % (A) 5.6 %; NRBC Per 100 WBC 0 X 10*3/uL (0.00-0.01); Neutrophils # (A) 4.07 X 10*3/uL (1.80-7.70); Neutrophils % (A) 63.5 %; Platelet Count 383 X 10*3/uL (140-440); RBC 4.54 X 10*6/uL (4.10-5.20); RDW 12.6 % (11.5-14.5); WBC 6.41 X 10*3/uL (4.50-10.00)
[2024-06-17 10:47] LABS: ALT 35 U/L (8-44); AST 24 U/L (13-35); Albumin 4.4 g/dL (3.8-4.9); Alkaline Phosphatase 78 U/L (41-126); BUN/Creat Ratio 20.14 Ratio (12.00-20.00); Blood Urea Nitrogen 14.1 mg/dL (9.0-27.0); Calcium 10.6 mg/dL (8.7-10.3); Carbon Dioxide 24.8 mmol/L (21.6-31.8); Chloride 106 mmol/L (96-109); Chol/HDL Ratio 2.18 Ratio; Creatine Kinase 61 U/L (26-186); Globulin 2.2 g/dL (1.6-3.3); Glucose 99 mg/dL (70-110); LDL Cholesterol,Calculated 79.9 mg/dL (0.0-131.0); Magnesium 1.8 mg/dL (1.5-2.4); Potassium 5.1 mmol/L (3.5-5.5); Sodium 141 mmol/L (135-145); Total Bilirubin 0.4 mg/dL (0.3-1.2); Total Protein 6.6 g/dL (6.2-8.2); VLDL Calculation 15.38 mg/dL (5.00-40.00)
[2024-06-17 11:43] LABS: NT-Pro-B-Type Natriuretic Pept 64 pg/mL (0-125)
== END | disposition home or self-care (01) ==
LOC: LABWHC1 07:28
PROVIDERS: ATTEND Internal Medicine
DX: I34.0 Nonrheumatic mitral (valve) insufficiency (principal); E03.9 Hypothyroidism, unspecified; E78.2 Mixed hyperlipidemia; K21.00 Gastro-esophageal reflux disease with esophagitis, without bleeding
CPT/HCPCS: 36415; 80053; 80061; 82550; 83036; 83735; 83880; 84443; 85025

== ENCOUNTER → 2024-08-09 | Outpatient (CLI) | payer MEDICARE ==
--- NOTE | 2024-08-09 11:28 | BD ---
EXAMINATION TYPE: Axial Bone Density DATE OF EXAM: 08/09/2024 CLINICAL HISTORY: 64 years old Female. ICD-10 CODE: M85.841 Osteopenia , Additional History: Height: 66.5 Weight: 180 Comparison: Prior DEXA bone scan July 01, 2022 FRAX RISK QUESTIONS: Family History (Parent hip fracture): no History of Fracture in Adulthood: yes ankle Secondary Osteoporosis: yes 3. Menopause before 45: yes RISK FACTORS HISTORY OF: Surgery to Spine/Hip(right/left)/Wrist (right/left): yes When: right 2011, left 2014 MEDICATIONS: Thyroid Medications: yes Which medication: Levothyroxine How Lon+ years Osteoporosis Medications: no EXAM MEASUREMENTS: Bone mineral densitometry was performed using the Vionic System. Bone mineral density as measured about the Lumbar spine is: ----- L1-L4(G/cm2): 1.082 T Score Values are as follows: ----- L1: -0.9 ----- L2: -1.8 ----- L3: -1.0 ----- L4: 0.0 ----- L1-L4: -0.8 Z Score Values are as follows: ----- L1: 0.1 ----- L2: -0.7 ----- L3: 0.1 ----- L4: 0.0 ----- L1-L4: 0.2 Bone mineral density has: Decreased -0.2% since study of: 07/01/2022 Bone mineral density about the L Wrist (g/cm2): 0.606 T Score values are as follows: -----Dist. R+U: -1.7 -----Prox. R+U: -0.9 -----Radius total: -1.1 Z Score values are as follows: -----Dist. R+U: -0.2 -----Prox. R+U: 0.6 -----Radius total: 0.3 Bone mineral density has: Increased 4.4% since study of: 07/01/2022 FRAX%s: none IMPRESSION: Osteopenia (T Score between -2.5 and -1) remains present. There is slightly increased risk of fracture and the patient may be considered for treatment. Re-Screen 2-5 years. NOTE: T-SCORE=SD OF THE YOUNG ADULT MEAN. [facility], , 08/09/2024 11:26 AM
--- NOTE | 2024-08-09 12:03 | MM ---
Reason for Exam: Screening (asymptomatic). Last screening mammogram was performed 12 month(s) ago. Patient History: Menarche at age 10. First Full-Term at age 20. Postmenopausal. Patient used Estrogen for 3 years. Patient used Progesterone for 3 years. Patient used Hormonal Contraceptives for 9 years. 05/09/2015, Benign Core Biopsy on the right side. Paternal aunt had breast cancer, age 60. Risk Values: Betzy 5 year model risk: 1.8%. NCI Lifetime model risk: 6.4%. Prior Study Comparison: 01/09/2022 Left MG 3D diag mammo w/cad , [facility]. 07/10/2022 Bilateral MG 3D diag mammo w/cad RADHA, [facility]. 08/06/2023 Bilateral MG 3D screening mammo w/cad, [facility]. Tissue Density: The breasts are heterogeneously dense, which may obscure small masses. Analyzed By CAD. Overall Assessment: Benign, BI-RAD 2 Management: Screening Mammogram of both breasts in 1 year. Electronically signed and approved by: Job Serrato M.D.
== END | disposition home or self-care (01) ==
LOC: RADMAMWWP 08:57
PROVIDERS: ATTEND Internal Medicine
DX: Z12.31 Encounter for screening mammogram for malignant neoplasm of breast (principal); M85.841 Other specified disorders of bone density and structure, right hand; Z78.0 Asymptomatic menopausal state; Z80.3 Family history of malignant neoplasm of breast; R92.333 Mammographic heterogeneous density, bilateral breasts; M85.80 Other specified disorders of bone density and structure, unspecified site
CPT/HCPCS: 77063; 77067; 77080

== ENCOUNTER → 2024-10-29 | Outpatient (CLI) | payer MEDICARE ==
[2024-10-29 18:12] LABS: Basophils # (A) 0.05 X 10*3/uL (0.00-0.10); Basophils % (A) 0.7 %; Eosinophils # (A) 0.18 X 10*3/uL (0.04-0.35); Eosinophils % (A) 2.5 %; HCT 40.6 % (37.2-46.3); HGB 12.6 g/dL (12.0-15.0); Lymphocytes # (A) 1.86 X 10*3/uL (0.90-5.00); Lymphocytes % (A) 25.8 %; MCH 29.4 pg (27.0-32.0); MCV 94.9 FL (80.0-97.0); Mean Platelet Volume 9.5 FL (9.5-12.2); Monocytes # (A) 0.53 X 10*3/uL (0.20-1.00); Monocytes % (A) 7.4 %; NRBC Per 100 WBC 0 X 10*3/uL (0.00-0.01); Neutrophils # (A) 4.57 X 10*3/uL (1.80-7.70); Neutrophils % (A) 63.3 %; Platelet Count 507 X 10*3/uL (140-440); RBC 4.28 X 10*6/uL (4.10-5.20); RDW 14.1 % (11.5-14.5); WBC 7.21 X 10*3/uL (4.50-10.00)
[2024-10-29 18:25] LABS: ALT 32 U/L (8-44); AST 19 U/L (13-35); Albumin 4.3 g/dL (3.8-4.9); Albumin/Globulin Ratio 1.87 Ratio (1.60-3.17); Alkaline Phosphatase 80 U/L (41-126); BUN/Creat Ratio 22.71 Ratio (12.00-20.00); Blood Urea Nitrogen 15.9 mg/dL (9.0-27.0); C Reactive Protein <0.30 mg/dL (0.00-0.80); Calcium 10.6 mg/dL (8.7-10.3); Carbon Dioxide 25.7 mmol/L (21.6-31.8); Chloride 107 mmol/L (96-109); Globulin 2.3 g/dL (1.6-3.3); Glucose 96 mg/dL (70-110); Potassium 5.1 mmol/L (3.5-5.5); Sodium 142 mmol/L (135-145); Total Bilirubin 0.4 mg/dL (0.3-1.2); Total Protein 6.6 g/dL (6.2-8.2)
[2024-10-29 19:43] LABS: Erythrocyte Sedimentation Rate 15 mm/Hr (0-30)
== END | disposition home or self-care (01) ==
LOC: LABWHC1 14:48
PROVIDERS: ATTEND Internal Medicine
DX: M35.3 Polymyalgia rheumatica (principal); E78.2 Mixed hyperlipidemia; K21.00 Gastro-esophageal reflux disease with esophagitis, without bleeding
CPT/HCPCS: 36415; 80053; 83036; 85025; 85652; 86140

== ENCOUNTER → 2024-11-23 | Outpatient (CLI) | payer MEDICARE ==
[2024-11-23 08:22] VITALS: BP 138/85; PULSE 61; RESP 16; TEMP 98.6
--- NOTE | 2024-11-23 08:47 | P.HPOB ---
History of Present Illness H&P Date: 11/23/24 Chief Complaint: The patient is here for her routine gynecologic exam. This is a 64-year-old G3, P3 with an LMP of 2000. The patient states she has been doing well with HRT. She does have some hot flashes at night, but are tolerable. She is otherwise without gynecologic complaints and denies any postmenopausal bleeding. She has not tried to wean from the dose of HRT prescribed last year. Review of Systems The patient has gained 16 pounds over the last year. She attributes part of this to recent steroid use for polymyalgia rheumatica. She denies respiratory, cardiac, or G.I. problems. Past Medical History Past Medical History: Cancer, GERD/Reflux, Osteoarthritis (OA), Thyroid Disorder Additional Past Medical History / Comment(s): Other HX: hypothyroidism. Polymyalgia rheumatica. Basal cell exc. 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 History of Any Multi-Drug Resistant Organisms: None Reported Past Surgical History: Appendectomy, Cholecystectomy, Joint Replacement, Orthopedic Surgery, Tubal Ligation Additional Past Surgical History / Comment(s): 05/15/15 Total L hip arthropla sty anterior approach with cell saver. RT ANKLE ORIF, RT HIP REPLACEMENT. Eye lid surg. Colonoscopy with EGD 2023(next after 10yr). Past Anesthesia/Blood Transfusion Reactions: No Reported Reaction, Motion Sickness Additional Past Anesthesia/Blood Transfusion Reaction / Comment(s): Pt has never recieved blood. Past Psychological History: No Psychological Hx Reported Additional Psychological History / Comment(s): TAKES XANAX TO SLEEP. Pt resides with her spouse. She is independent. She uses no assistive device. She drives. Smoking Status: Former smoker Past Alcohol Use History: Occasional (2 Drinks per week.) Additional Past Alcohol Use History / Comment(s): Pt started smoking in 1973 and quit in 1999. Past Drug Use History: None Reported Additional History: She is . She has been with her boyfriend since 2020. They do not live together. 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 - Past Family History Mother Family Medical History: Cancer Additional Family Medical History / Comment(s): LUNG cancer. . Father Family Medical History: Cancer Additional Family Medical History / Comment(s): KIDNEY cancer. . Brother(s) Family Medical History: Cancer Additional Family Medical History / Comment(s): LUNG cancer. . Another brother had a closed head injury. Medications and Allergies Home Medications Medication Instructions Recorded Confirmed Type Lansoprazole 30 mg PO DAILY 05/02/15 06/01/24 History Levothyroxine Sodium [Synthroid] 125 mcg PO QMONTHLY 05/26/19 06/01/24 History Vitamin B12 (Unknown Dose) 1 tab PO DAILY 05/26/19 06/01/24 History Vitamin D (Unknown Dose) 1 tab PO DAILY 05/26/19 06/01/24 History Ascorbic Acid [Vitamin C] 500 mg PO DAILY 12/06/20 06/01/24 History Atorvastatin [Lipitor] 20 mg PO DAILY 12/06/20 06/01/24 History Aspirin 81 mg PO DAILY 10/28/23 06/01/24 History estradioL [Estrace] 0.5 mg PO DAILY #90 tablet 04/13/24 06/01/24 Rx nitrofurantoin macrocrystaL 1 tab PO DIRECTED 04/13/24 06/01/24 History Multivit with Calcium,Iron,Min 1 tab PO DAILY 06/01/24 06/01/24 History [Women's Multivitamin] medroxyPROGESTERone [Provera] 2.5 mg PO DAILY #90 tablet 06/15/24 Rx Allergies Allergy/AdvReac Type Severity Reaction Status Date / Time meperidine HCl [From Demerol] AdvReac Unknown Nausea & Verified 11/23/24 08:11 Vomiting Exam Vital Signs Temp Pulse Resp BP Pulse Ox 11/23/24 08:14 98.6 F 61 16 138/85 92 L Intake and Output 11/22/24 11/23/24 11/23/24 22:59 06:59 14:59 Other: Weight 88.904 kg Height 5 feet 8 inches, weight 196 pounds, BMI 29.8. This is a well-developed well-nourished white female who is alert and oriented times 3 in no acute distress. HEENT: Within normal limits. NECK: Supple without mass or thyromegaly. CHEST AND LUNGS: Clear to auscultation. HEART: Regular rate and rhythm. BREASTS: Are without mass or discharge. AXILLARY EXAM: Negative for adenopathy. BACK: Negative for CVA tenderness. ABDOMEN: Soft, nontender, without palpable masses. PELVIC EXAM: Normal external genitalia with mild atrophy. Cervix and vagina appear normal with mild atrophy. There is no unusual discharge. There is no evidence of prolapse. The uterus is midposition, nongravid size and nontender. There are no palpable adnexal masses or tenderness. RECTAL EXAM: Rectovaginal exam is negative for mass or tenderness and is negative for occult blood. EXTREMITIES: Nontender. IMPRESSION: 1. 64-year-old menopausal female doing well on low-dose HRT, with normal gynecologic exam. 2. Occasional vasomotor symptoms at night on low-dose HRT. 3. History of osteopenia. PLAN: 1. Pap smears have been discontinued. 2. Self breast awareness was discussed with the patient. We have also discussed symptoms associated with inflammatory breast cancer. 3. Screening mammogram was done on 08/09/2024 and was benign. She will repeat this after 1 year. 4. Osteoporosis prevention was discussed. I have stressed the importance of adequate calcium, vitamin D and regular exercise. Recommended amounts of calcium and vitamin D were also discussed. Recent bone density test was done on 08/19/2024 and showed stable osteopenia. We will plan on repeating this in appro ximately 2 to 3 years. 5. We have had a discussion regarding HRT. We have discussed slight increased risk of breast cancer, heart attack, stroke, and blood clots with HRT. I have recommended attempting to gradually wean off of HRT. She states she will start to wean the estrogen amount gradually. We have discussed ways of doing this. Electronic prescription for estradiol 0.5 mg daily and medroxyprogesterone acetate 2.5 mg daily will be sent to [facility] pharmacy in [facility]. 6. She continues to use postcoital nitrofurantoin to prevent UTIs. This was prescribed by her PCP. 7. She was advised to return in one year for her annual well woman exam.
== END ==
LOC: WWCWWP 07:51
PROVIDERS: ATTEND Obstetrics & Gynecology
DX: Z01.419 Encounter for gynecological examination (general) (routine) without abnormal findings (principal); N95.1 Menopausal and female climacteric states; M85.80 Other specified disorders of bone density and structure, unspecified site; Z79.890 Hormone replacement therapy; Z88.5 Allergy status to narcotic agent; Z87.891 Personal history of nicotine dependence

== ENCOUNTER → 2024-12-02 | Outpatient (CLI) | payer MEDICARE ==
--- NOTE | 2024-12-02 07:03 | CTL ---
EXAMINATION TYPE: CT Low Dose Lung DATE OF EXAM ORDERED: 12/02/2024 COMPARISON: Prior chest CT December 01, [address] November 28, 2021 CLINICAL INDICATION: Female, 64 years old with history of Z12.2 SCREENING LUNG CA Z87.891 FORMER [facility]; [facility], lung CA screening, Lung cancer screening, History of Smoking/tobacco use. TECHNIQUE: Low dose computed tomography scan was performed through the chest at 1 mm thick sections a nd reconstructed images in multiple planes at 1 mm and [address] DLP: [address] CTDI: 2.14 mGy Automated exposure control for dose reduction was used. CT DIAGNOSTIC QUALITY: Limited, but interpretable FINDINGS: Nodules: Stable 6 x 6 mm left upper lobe pulmonary nodule axial image 140. Stable 4 mm peripheral darlene gular nodule axial image 207. Stable 6 x 2 mm nodule or nodular thickening along the fissure left mid lung axial image 160 No new or enlarging greater than 4 mm noncalcified pulmonary nodules. LUNGS: COPD: Severity: Mild Fibrosis: Severity: None Lymph nodes: None Other findings: None RIGHT PLEURAL SPACE: Effusion: None Calcification: None Thickening: None Pneumothorax: None LEFT PLEURAL SPACE: Effusion: None Calcification: None Thickening: None Pneumothorax: None HEART: Heart Size: Normal Coronary Calcification: None Pericardial Effusion: None OTHER FINDINGS: Upper abdomen: Cholecystectomy clips are present. Bony thorax: S-shaped scoliosis is redemonstrated. Supraclavicular region: None Other: None IMPRESSION: No significant new or enlarging greater than [address] LUNG RAD AND [address] CHEST RECOMMENDATION: Lung-Rad 2 Benign Appearance or Behavior: Continue annual sc reening with LDCT in 12 months. S Modifier (other clinically significant findings): None [facility], , 12/02/2024 7:01 AM
== END | disposition home or self-care (01) ==
LOC: RADCTMAIN 06:19
PROVIDERS: ATTEND Internal Medicine Critical Care Medicine
DX: Z12.2 Encounter for screening for malignant neoplasm of respiratory organs (principal); J44.9 Chronic obstructive pulmonary disease, unspecified; R91.1 Solitary pulmonary nodule; Z87.891 Personal history of nicotine dependence
CPT/HCPCS: 71271

== ENCOUNTER → 2025-01-20 | Outpatient (CLI) | payer MEDICARE ==
[2025-01-20 15:08] LABS: Basophils # (A) 0.04 X 10*3/uL (0.00-0.10); Basophils % (A) 0.4 %; Eosinophils # (A) 0.14 X 10*3/uL (0.04-0.35); Eosinophils % (A) 1.3 %; HCT 40.5 % (37.2-46.3); HGB 12.8 g/dL (12.0-15.0); Lymphocytes # (A) 1.26 X 10*3/uL (0.90-5.00); Lymphocytes % (A) 12.1 %; MCH 29.6 pg (27.0-32.0); MCHC 31.6 g/dL (32.0-37.0); MCV 93.8 FL (80.0-97.0); Mean Platelet Volume 10.2 FL (9.5-12.2); Monocytes # (A) 0.53 X 10*3/uL (0.20-1.00); Monocytes % (A) 5.1 %; NRBC Per 100 WBC 0 X 10*3/uL (0.00-0.01); Neutrophils # (A) 8.42 X 10*3/uL (1.80-7.70); Neutrophils % (A) 80.8 %; Platelet Count 325 X 10*3/uL (140-440); RBC 4.32 X 10*6/uL (4.10-5.20); RDW 12.3 % (11.5-14.5); WBC 10.42 X 10*3/uL (4.50-10.00)
[2025-01-20 15:42] LABS: Erythrocyte Sedimentation Rate 12 mm/Hr (0-30)
== END | disposition home or self-care (01) ==
LOC: LABWHC1 12:01
PROVIDERS: ATTEND Internal Medicine
DX: M35.3 Polymyalgia rheumatica (principal)
CPT/HCPCS: 36415; 85025; 85652; 86140